=== PATIENT | male | born 1950 | race Caucasian/White ===

== ENCOUNTER 2019-03-30 06:44 | Outpatient (RCR) | payer MEDICARE, SELFPAY | END 2019-04-03 00:01 | LOC: ONCRAD 06:44 | PROVIDERS: Family Provider Internal Medicine; Visit Provider Internal Medicine Medical Oncology | DX: C34.31 Malignant neoplasm of lower lobe, right bronchus or lung (principal); C78.1 Secondary malignant neoplasm of mediastinum; R93.7 Abnormal findings on diagnostic imaging of other parts of musculoskeletal system; M48.52XA Collapsed vertebra, not elsewhere classified, cervical region, initial encounter for fracture; Z79.899 Other long term (current) drug therapy | CPT/HCPCS: 72040; 78806; A9569 ==

== ENCOUNTER 2019-04-22 05:47 | Outpatient (RCR) | payer MEDICARE, SELFPAY | END 2019-05-04 00:01 | LOC: ONCRAD 05:47 | PROVIDERS: Family Provider Internal Medicine; Visit Provider Radiology Radiation Oncology | DX: Z51.0 Encounter for antineoplastic radiation therapy (principal); C79.51 Secondary malignant neoplasm of bone; C34.31 Malignant neoplasm of lower lobe, right bronchus or lung; C78.1 Secondary malignant neoplasm of mediastinum; G89.3 Neoplasm related pain (acute) (chronic); R20.0 Anesthesia of skin; Z79.82 Long term (current) use of aspirin | CPT/HCPCS: 77014 ×9; 77280; 77290; 77295; 77300; 77334 ×2; 77336 ×2; 77386; 77412 ×9; 99215 ==

== ENCOUNTER 2019-05-07 05:49 | Outpatient (RCR) | payer MEDICARE, SELFPAY ==
--- NOTE | 2019-05-08 12:28 | ONC FU_ITS ---
Dr. Flower Patient Follow-Up Note Patient: Reshma Perry Unit #: [id number]: 1950 Dicatated By: Luis A Flower M.D.Date of Visit:May 07, 2019 Onc Med Follow-up/Prog Note Chief Complaint: Lung cancer. 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 By clinical evaluation his disease was stage IIIB (T2b, N3, M0), but with subsequent progression to stage IVB (M1c). On 08/31/2018 he had presented to the emergency room with pain in the left side of the chest and heartburn. His evaluation included CT pulmonary angiogram. That study showed no pulmonary emboli, but there was evidence of a spiculated mass in the posterior right lower lobe measuring 5.8 x 5.7 x 4.5 cm. There was possible invasion into the intercostal muscles. Also noted was mediastinal and hilar lymphadenopathy, including a confluent cluster of subcarinal lymph nodes measuring 4.3 x 2.9 cm as well as bilateral paratracheal and hilar lymphadenopathy. Also noted was a 1.4 spiculated nodule at the right lung apex, consistent with early neoplasm versus scar. Transbronchial biopsy of the right lower lobe on 09/17/2018 showed non-small cell carcinoma consistent with adenosquamous carcinoma. The tumor cells were TTF-1 positive. Staging PET/CT on 09/25/2018 showed FDG avid right lower lobe mass with extensive metastatic involvement in the mediastinum but no evidence for distant metastases. His medical illnesses include hypertension, hyperlipidemia, coronary artery disease, and COPD. He has had previous myocardial infarction and coronary angioplasty/stent placement. He has a history of superficial bladder cancer, for which he is now on yearly surveillance cystoscopy, and he also has a history of urethral stricture. He has smoked for more than 50 years, previously up to 3 packs of cigarettes daily, though he had subsequently cut down. INTERIM HISTORY: He began radiation concurrently with weekly carboplatin/Taxol chemotherapy on 11/03/2018. As of 12/09/2018 he had completed 6 weekly chemotherapy infusions. At week 4 his treatment was changed to carboplatin/Abraxane due to steroid related hyperglycemia. He completed radiation on 12/22/2018 to a total dose of [address] on 12/23/2018 showed a slight decrease in the size of the superior segment right lower lobe neoplasm compared to the August 2018 study. Cystic and/or necrotic mediastinal and hilar lymph nodes had slightly decreased in size and number. There was no evidence of disease progression. With those findings she was given the option to begin maintenance immunotherapy with durvalumab. He began cycle 1 on 01/20/2019. Within 2 days he had developed severe weakness and fever. On evaluation in the emergency room, he had evidence of urinary tract infection, which ultimately proved to be due to Enterobacter cloacae. He was ill enough to require hospitalization. He was discharged home 2 days later on antibiotic coverage with Levaquin. His laboratory studies did show a significant decline in his hemoglobin, to 8.3 g. During subsequent follow-up, he remained very weak, and he continued to require frequent IV hydration. His hemoglobin, though, returned to baseline at 11 g. He was seen for a follow-up visit on 02/03/2019. At that point he appeared to be showing some recovery, and I opted to just have him continue with observation/symptomatic management. At his follow-up visit on 02/22/2019 he complained of severe pain in the right shoulder. X-ray was unrevealing. His pain continued to worsen and also involved his neck. A repeat chest CT on 03/09/2019 showed interval decrease in the right lower lobe pleural-based neoplasm, at that point measuring 2.1 x 4.6 x 3.5 cm. A nodular opacity at the right lung base measuring 1.6 x 1.2 cm appeared stable. There was unchanged necrotic anterior mediastinal, AP window, and subcarinal lymphadenopathy. MRI of the cervical spine showed abnormal bone marrow signal involving the C6 vertebral body extending into the posterior elements with erosion of the spinous process and posterior elements. There was extensive posterior element and perispinal soft tissue edema. The reported differential included metastatic disease versus infection. A nuclear medicine WBC scan on 03/30/2019 showed evidence of a lytic bony destructive process throughout the C6 spinal level including pathologic compression of the C6 vertebral body, consistent with metastatic disease. He was then referred to Dr. Martinez for palliative radiation to the cervical spine. He completed treatment on 04/22/2019 to a total dose of 3000 cGy. He is seen for a follow-up visit. He has been feeling better following the radiation. He still has limited activity, but it has improved somewhat. His ECOG score is 2. Appetite also is better. He has not had fever. He has just occasional night sweats. He has had pretty much complete resolution of his neck and shoulder pain following the radiation, though he still has a little numbness in his right hand. He does have some shortness of breath, but he says his breathing is pretty good. He still has cough, which is chronic. He does not complain of chest pain. He has occasional nausea. He has had some constipation, but lately his bowel function also has been a little better. He has no complaints. He has no other joint or bone pain, and he has no other focal neurologic symptoms. Medications: Aspirin 1 Tablet (of 81 mg) Oral daily, Atorvastatin Calcium 1 Tablet (of 80 mg) Oral daily, Citalopram Hydrobromide 1 Tablet (of 20 mg) Oral daily, Daliresp 1 Tablet (of 500 mcg) Oral daily PRN, Dexamethasone (4 mg) Tablet Oral Take as Directed, Docusate Sodium 1 Capsule (of 100 mg) Oral daily, Dutasteride 1 Capsule (of 0.5 mg) Oral daily, Levemir Flexpen 20 Units (of 100 Units/mL) Subcutaneous at bedtime, Methenamine Hippurate 1 Tablet (of 1 G) Oral b.i.d., Montelukast Sodium 1 Tablet (of 10 mg) Oral daily PRN, Mouthwash Compounding Base 1 tsp Liquid Oral four times a day PRN, oxyCODONE-Acetaminophen 1 Tablet (of 5-325 mg) Oral q 6 hours PRN, Pantoprazole Sodium 1 Tablet (of 40 mg) Tablet, enteric coated Oral daily, predniSONE 1 Tablet (of 10 mg) Oral daily, Prochlorperazine Maleate 1 Tablet (of 10 mg) Oral b.i.d. PRN, Tamsulosin HCl 1 Capsule (of 0.4 mg) Oral b.i.d., Vitamin C 1 Tablet (of 1000 mg) Oral b.i.d. Allergies: Sulfa Antibiotics Review of Systems: Constitutional - He still has limited activity, but improved since radiation. Appetite is also better. No fever. He has occasional sweating at night. ECOG score is 2, ENMT - He always has sinus drainage. No mouth sores. No sore throat or difficulty swallowing, Hematologic/Lymphatic - He has some bruising, Respiratory - He has some shortness of breath, but his breathing is pretty good. He has some cough, but that is chronic. No pleuritic pain or hemoptysis, Cardiovascular - No angina pain. No palpitations, Gastrointestinal - He occasionally has nausea. No vomiting. No heartburn or acid reflux. He has some constipation, but his bowels lately have been a little better. No blood in the stool or black stools, Genitourinary (M) - No dysuria or hematuria. No urinary frequency. No urgency or incontinence, Musculoskeletal - He currently has no significant joint or bone pain, Integumentary - No skin complications, Neurologic - He very seldom has headache. He occasionally has dizziness. He still has some numbness in his right hand. He has no other focal neurologic symptoms, Psychiatric - No anxiety or depression. No insomnia. Vital Signs: Performed on May 07, 2019 10:33 Height - 66.00 in Weight - 101.2 lbs (HIGH) BSA - 1.50 sq.m BMI - 16.33 (LOW) Temperature - 97.8 F (LOW) Pulse - 61 /min Respiration - 18 /min BP - 102/62 mm(hg) O2 Sat - 99 % Pain - 0 Fatigue - 5 Physical Examination: Constitutional - He looks better generally, Eyes - Sclerae nonicteric. Conjunctivae clear, ENMT - No lesions noted in the oral cavity, Hematologic/Lymphatic - No cervical, clavicular, or axillary adenopathy, Respiratory - Lungs sound clear with diminished air movement bilaterally, Cardiovascular - Heart rhythm is regular. There is no murmur, gallop, or rub noted, Abdomen - Soft. Liver and spleen are not enlarged. There is no abdominal mass or ascites noted and there is no inguinal adenopathy, Extremities - No edema. There are purpuric lesions on both arms, Neurologic - No focal neurologic deficits noted. Impression: 1. 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 By clinical evaluation his disease is stage IIIB (T2b, N3, M0). 2. He had poor performance status, ECOG 2, and he had significant weight loss at initial diagnosis. His other medical illnesses include: 3. COPD. 4. Hypertension. 5. Hyperlipidemia. 6. Coronary artery disease. 7. History of superficial bladder cancer. 8. He has a history of urethral stricture. 9. Anxiety/depression. He began radiation concurrently with weekly carboplatin/Taxol chemotherapy on 11/03/2017. As of 12/09/2018 he had completed 6 weekly chemotherapy infusions. Beginning with week 4 his treatment was changed to carboplatin/Abraxane due to steroid related hyperglycemia. He completed radiation on 12/22/2018 to a total dose of 6600 cGy. His restaging chest CT on 12/23/2018 showed slight decrease in the right lower lobe pulmonary neoplasm and in the mediastinal and hilar lymph nodes. There was no evidence of disease progression. Given those findings, he was given the option to begin maintenance immunotherapy with durvalumab. He began cycle 1 on 01/20/2019. Within 2 days had developed acute illness with severe weakness and fever. This was thought to be due to urinary tract infection, and his urine culture ultimately did grow Enterobacter cloacae. He was given antibiotic therapy with Levaquin. During that time, he also had become significantly anemic. During subsequent follow-up he remained weak, and he continued to require frequent IV hydration. His hemoglobin, though, returned to baseline at 11 g. During subsequent followup he appeared to be showing gradual recovery. However, at his follow-up visit on 02/22/2019 he had developed new pain in the right shoulder and arm and subsequently in his neck. Repeat chest CT showed residual pleural-based right lower lobe mass measuring 2.1 x 4.6 x 3.5 cm, but it had decreased from the prior study. His subsequent MRI and nuclear medicine WBC scan showed evidence of metastatic involvement of the C6 vertebral body with associated pathologic compression fracture. He was referred to Dr. Martinez for palliative radiation to the cervical spine. He completed treatment on 04/22/2019 to a total dose of 3000 cGy. He has had a very good clinical response. Plan: He will be scheduled for restaging PET/CT, and he will then return to discuss options for further treatment of his lung cancer, which has now progressed to stage IVB. Signed By: Luis A Flower M.D. <<Signature on File>>
== END 2019-06-04 23:59 | disposition home or self-care (01) ==
LOC: ONCMED 05:49
PROVIDERS: Family Provider Internal Medicine; PCP Internal Medicine Medical Oncology; Visit Provider Internal Medicine Medical Oncology
DX: C34.31 Malignant neoplasm of lower lobe, right bronchus or lung (principal); C78.1 Secondary malignant neoplasm of mediastinum; C79.51 Secondary malignant neoplasm of bone; I10 Essential (primary) hypertension; I25.10 Atherosclerotic heart disease of native coronary artery without angina pectoris; Z95.5 Presence of coronary angioplasty implant and graft; J44.9 Chronic obstructive pulmonary disease, unspecified; I25.2 Old myocardial infarction; F17.210 Nicotine dependence, cigarettes, uncomplicated; G89.3 Neoplasm related pain (acute) (chronic); F41.8 Other specified anxiety disorders; R73.9 Hyperglycemia, unspecified; T38.0X5A Adverse effect of glucocorticoids and synthetic analogues, initial encounter; Z79.82 Long term (current) use of aspirin; Z79.84 Long term (current) use of oral hypoglycemic drugs; Z79.891 Long term (current) use of opiate analgesic; Z85.51 Personal history of malignant neoplasm of bladder; Z92.3 Personal history of irradiation; Z92.21 Personal history of antineoplastic chemotherapy; Z87.440 Personal history of urinary (tract) infections
CPT/HCPCS: 99214

== ENCOUNTER 2019-06-29 03:56 | Inpatient (IN) | payer OTHER, MEDICARE, SELFPAY ==
[2019-06-29] VITALS (47 sets, daily range): BP systolic 73–135; BP diastolic 43–75; PULSE 59–101; RESP 12–21; TEMP 36.3–36.8; O2SAT 89–99; BMI 18.3
--- NOTE | 2019-06-29 03:57 | ED_ITS ---
Entered by Tabitha Catherine, acting as scribe for HPI - Weakness General: Chief complaint: Weakness Stated complaint: WEAKNESS FALL Time Seen by Provider: 06/29/19 03:57 Source: EMS Mode of arrival: EMS Limitations: no limitations History of Present Illness: HPI Narrative: 68 yo m came to the er by [facility] for weakness. 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 Ems states that they got called out to a 68 yo m unresponsive, when they got there pt was responsive and had just fallen out of bed due to being really weak. Pts family told ems that he was unresponsive for a little time. Pt is a cancer pt of . Pt has lung cancer that has moved to his neck. 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) Duration: intermittent Location: generalized Migration: none Severity: moderate Relieving factors: none Exacerbating factors: none Associated symptoms: Reports no associated symptoms; Denies chest pain, chills, dark stools, diaphoresis, dysuria, easy bruising, fever(s), nausea, syncope or vomiting Review of Systems General: Reports: other (negative unless marked) Const: Denies: fever, chills, body aches, fatigue, malaise or diaphoresis Eyes: Denies: change in vision or blurry vision ENMT: Denies: throat pain, painful swallowing, hoarseness, ear pain, ear discharge, Change in hearing or nasal discharge Card: Denies: chest pain, palpitations, irregular heart rhythm, syncope, pre- syncope, shortness of breath on exertion or shortness of breath when lying down Resp: Reports: shortness of breath, productive cough and wheezing; Denies: non-productive cough, coughing up blood or chest congestion GI: Denies: abdominal pain, nausea, vomiting, vomiting blood, coffee grounds in vomit, diarrhea, constipation, cramping, blood in stool or black tarry stool : Denies: flank pain, difficulty urinating, painful urination, urinary frequency, urinary urgency, decreased urine ouput, urinary incontinence or blood in urine Musc: Denies: neck pain, back pain, extremity pain, extremity swelling, joint pain, joint swelling, joint warmth or joint stiffness Skin/Breast: Denies: rash, skin tenderness or yellow skin Neuro: Reports: weakness in extremities Endo: Denies: excessive thirst, tired all the time, cold intolerance, excessive sweating, flushing or hot flashes Parth/Lymph: Denies: easy bruising, easy bleeding, petechiae or enlarged lymph nodes All/Imm: Denies: hives, throat swelling, tongue swelling, facial swelling or acute wheezing PFSH ED PFSH: Social History Smoking and tobacco status: current every day smoker Physical Exam Const: COMMON NORMALS: no apparent distress, oriented x3, no limitations, healthy appearing and well nourished EXAM LIMITATIONS: no altered mental status GENERAL APPEARANCE: cooperative, well kempt and well developed ORIENTATION/CONSCIOUSNESS: Yes awake HENMT: COMMON NORMALS: normocephalic, head/scalp atraumatic, hearing grossly normal bilaterally, external ears normal, EAC's normal, external nose normal and moist oral mucous membranes HEAD & SCALP: normal to inspection, normocephalic and atraumatic FACE & SINUS: normal facial exam and face symmetric NOSE: external nose normal and nares normal EXTERNAL EAR: Yes external ears normal EXTERNAL AUDITORY CANAL: EAC's normal MOUTH: oral and palatal mucosa normal and tongue normal Eye: COMMON NORMALS: PERRL, EOMs intact bilaterally, conjunctivae normal and no scleral icterus GENERAL EYE: normal appearance of both eyes and normal light reflex CONJUNCTIVA: Yes conjunctivae normal SCLERA: sclerae normal CORNEA: Yes corneas normal PUPIL: Yes PERRL DIRECT OPHTHALMOSCOPY: Yes normal light reflex Neck/C-Spine: COMMON NORMALS: full ROM, no lymphadenopathy, supple, no meningeal signs and no JVD GENERAL: Yes normal visual inspection and Yes trachea midline CERVICAL SPINE: Yes cervical ROM normal Chest: COMMONS NORMALS: inspection of chest normal and palpation of chest normal Resp: EFFORT & INSPECTION: Yes able to speak in complete sentences AUSCULTATION: rhonchi and wheezes Cardio: COMMON NORMALS: no JVD, regular rate, regular rhythm, S1 normal heart sound, S2 normal heart sound, no gallops, no clicks, no murmurs and no rub JUGULAR VENOUS DISTENTION: no JVD RATE: regular rate RHYTHM: regular rhythm HEART SOUNDS: S1 normal and S2 normal GI: COMMON NORMALS: soft to palpation, non-tender, no hepatosplenomegaly and no masses INSPECTION: Yes normal to inspection PALPATION: Yes soft and Yes no hepatosplenomegaly : COMMON NORMALS: Yes no CVA tenderness BLADDER/KIDNEY EXAM: Yes no CVA tenderness Back/Pelvis: COMMON NORMALS: no CVA tenderness, thoracic and lumbar spine normal to inspection, no thoracic nor lumbar tenderness and thoraco-lumbar ROM normal Extremity: COMMON NORMALS: normal to inspection, full ROM, normal capillary refill, no joint enlargement, no clubbing, cyanosis or edema and no calf tenderness Neuro: COMMON NORMALS: oriented x3, CN's II-XII intact bilaterally, moves all extremities, no focal motor deficits and no sensory deficits noted MENINGEAL SIGNS: Yes no meningeal signs Psych: COMMON NORMALS: mental status grossly normal, thought process normal, cooperative, affect normal, speech normal and activity/motor behavior normal APPEARANCE: Yes well kempt SPEECH: Yes normal speech THOUGHT PROCESS: normal thought process Skin: COMMON NORMALS: no rashes or lesions noted, skin turgor normal, no jaundice, no petechiae and no mottling GENERAL SKIN EXAM: no rashes or lesions noted and turgor normal Course Vital Signs: Vital signs: Vital Signs Temperature 98.2 F 06/29/19 04:02 Pulse Rate 81 06/29/19 06:15 Respiratory Rate 15 06/29/19 06:15 Blood Pressure 96/52 06/29/19 06:15 Pulse Oximetry 96 06/29/19 06:15 MDM - Weakness Lab Data: Labs: Lab Results 06/29/19 06/29/19 06/29/19 Range/Units 04:06 04:31 04:31 WBC 8.9 (4.0-10.0) 10^3/ uL RBC 5.10 (4.1-5.3) 10^6/u L Hgb 14.4 (11.7-16.6) g/dL Hct 45.3 (42.0-52.0) % MCV 88.8 (80-94) fL MCH 28.2 (28.0-34.0) pg MCHC 31.8 (30.0-36.0) g/dL RDW 14.7 (12.1-15.1) % Plt Count 193 (130-400) 10^3/c mm MPV 9.1 (7.4-10.4) fL Neut % (Auto) 86.5 % Lymph % (Auto) 3.9 % Bethel % (Auto) 9.0 % Eos % (Auto) 0.0 % Baso % (Auto) 0.2 % Neut # (Auto) 7.7 (1.8-7.7) 10^3/u L Lymph # (Auto) 0.4 L (0.8-4.8) 10^3/u L Bethel # (Auto) 0.8 (0.2-0.9) 10^3/u L Eos # (Auto) 0.0 (0.0-0.8) 10^3/u L Baso # (Auto) 0.0 (0.0-0.1) 10^3/u L Nucleated RBC % (a uto) 0 % Nucleated RBCs # 0.0 /100WBC PT 13.30 (10.5-13.3) SECO NDS INR 1.01 (0.8-1.2) Specimen Type Sample Site ABG pH (7.35-7.45) ABG pCO2 (35-45) mmHg ABG pO2 (80.0-100.0) mmH g ABG HCO3 (22-26) mmol/L ABG Base Excess (-2.0-2.0) mmol/ L Cristofer Test Hematocrit (42-52) % O2 Delivery Device O2 Liters/Min % Product Communications Manager ID Sodium (136-145) mmol/L Potassium (3.5-5.1) mmol/L Chloride (98-107) mmol/L Carbon Dioxide (22-29) mmol/L Anion Gap (5-19) BUN (8-23) mg/dL Creatinine (0.7-1.2) mg/dL GFR Calculation (90-130) mL/min Glucose (65-115) mg/dL Lactic Acid (0.5-2.2) mmol/L Calcium (8.5-10.5) mg/dL Magnesium (1.7-2.3) mg/dL Total Bilirubin (0.15-1.2) mg/dL AST (0-40) U/L ALT (0-41) U/L Alkaline Phosphata se (40-130) IU/L Ammonia (16-60) umol/L Troponin T Baselin e (0-15) ng/mL Total Protein (6.6-8.7) g/dL Albumin (3.5-5.2) g/dL Globulin (1.3-4.6) g/dL Ethyl Alcohol (0-10) mg/dL Influenza Type A A g Negative (Negative) POC Influenza B Ag Negative (Negative) 06/29/19 06/29/19 06/29/19 Range/Units 04:31 04:31 04:31 WBC (4.0-10.0) 10^3/ uL RBC (4.1-5.3) 10^6/u L Hgb (11.7-16.6) g/dL Hct (42.0-52.0) % MCV (80-94) fL MCH (28.0-34.0) pg MCHC (30.0-36.0) g/dL RDW (12.1-15.1) % Plt Count (130-400) 10^3/c mm MPV (7.4-10.4) fL Neut % (Auto) % Lymph % (Auto) % Bethel % (Auto) % Eos % (Auto) % Baso % (Auto) % Neut # (Auto) (1.8-7.7) 10^3/u L Lymph # (Auto) (0.8-4.8) 10^3/u L Bethel # (Auto) (0.2-0.9) 10^3/u L Eos # (Auto) (0.0-0.8) 10^3/u L Baso # (Auto) (0.0-0.1) 10^3/u L Nucleated RBC % (a uto) % Nucleated RBCs # /100WBC PT (10.5-13.3) SECO NDS INR (0.8-1.2) Specimen Type Sample Site ABG pH (7.35-7.45) ABG pCO2 (35-45) mmHg ABG pO2 (80.0-100.0) mmH g ABG HCO3 (22-26) mmol/L ABG Base Excess (-2.0-2.0) mmol/ L Cristofer Test Hematocrit (42-52) % O2 Delivery Device O2 Liters/Min % Product Communications Manager ID Sodium 137 (136-145) mmol/L Potassium 3.2 L (3.5-5.1) mmol/L Chloride 96 L (98-107) mmol/L Carbon Dioxide 24 (22-29) mmol/L Anion Gap 20.2 H (5-19) BUN 15 (8-23) mg/dL Creatinine 0.8 (0.7-1.2) mg/dL GFR Calculation 95.8 (90-130) mL/min Glucose 101 (65-115) mg/dL Lactic Acid 2.7 H (0.5-2.2) mmol/L Calcium 9.8 (8.5-10.5) mg/dL Magnesium 1.9 (1.7-2.3) mg/dL Total Bilirubin 0.7 (0.15-1.2) mg/dL AST 14 (0-40) U/L ALT 10 (0-41) U/L Alkaline Phosphata se 81 (40-130) IU/L Ammonia (16-60) umol/L Troponin T Baselin e 31 H (0-15) ng/mL Total Protein 6.9 (6.6-8.7) g/dL Albumin 3.4 L (3.5-5.2) g/dL Globulin 3.5 (1.3-4.6) g/dL Ethyl Alcohol < 10 (0-10) mg/dL Influenza Type A A g (Negative) POC Influenza B Ag (Negative) 06/29/19 06/29/19 Range/Units 04:31 05:05 WBC (4.0-10.0) 10^3/ uL RBC (4.1-5.3) 10^6/u L Hgb (11.7-16.6) g/dL Hct (42.0-52.0) % MCV (80-94) fL MCH (28.0-34.0) pg MCHC (30.0-36.0) g/dL RDW (12.1-15.1) % Plt Count (130-400) 10^3/c mm MPV (7.4-10.4) fL Neut % (Auto) % Lymph % (Auto) % Bethel % (Auto) % Eos % (Auto) % Baso % (Auto) % Neut # (Auto) (1.8-7.7) 10^3/u L Lymph # (Auto) (0.8-4.8) 10^3/u L Bethel # (Auto) (0.2-0.9) 10^3/u L Eos # (Auto) (0.0-0.8) 10^3/u L Baso # (Auto) (0.0-0.1) 10^3/u L Nucleated RBC % (a uto) % Nucleated RBCs # /100WBC PT (10.5-13.3) SECO NDS INR (0.8-1.2) Specimen Type Arterial Sample Site Radial, left ABG pH 7.43 (7.35-7.45) ABG pCO2 40.6 (35-45) mmHg ABG pO2 74.6 L (80.0-100.0) mmH g ABG HCO3 27.1 H (22-26) mmol/L ABG Base Excess 2.6 H (-2.0-2.0) mmol/ L Cristofer Test Pos Hematocrit 43.1 (42-52) % O2 Delivery Device Nc O2 Liters/Min 6.0 % Product Communications Manager ID ellpe Sodium (136-145) mmol/L Potassium (3.5-5.1) mmol/L Chloride (98-107) mmol/L Carbon Dioxide (22-29) mmol/L Anion Gap (5-19) BUN (8-23) mg/dL Creatinine (0.7-1.2) mg/dL GFR Calculation (90-130) mL/min Glucose (65-115) mg/dL Lactic Acid (0.5-2.2) mmol/L Calcium (8.5-10.5) mg/dL Magnesium (1.7-2.3) mg/dL Total Bilirubin (0.15-1.2) mg/dL AST (0-40) U/L ALT (0-41) U/L Alkaline Phosphata se (40-130) IU/L Ammonia 28 (16-60) umol/L Troponin T Baselin e (0-15) ng/mL Total Protein (6.6-8.7) g/dL Albumin (3.5-5.2) g/dL Globulin (1.3-4.6) g/dL Ethyl Alcohol (0-10) mg/dL Influenza Type A A g (Negative) POC Influenza B Ag (Negative) Imaging Data^: CT Head: Radiologist's impression: [address] [address] [address] Scan Report Signed Patient: Reshma Perry Unit #: [id number] : 1950 Age/Sex: 68 / M ADM Date: 06/29/19 Loc: ER Room/Bed: Attending Dr: Ordering Provider/Ordering MD: Korin Traylor DO Date of Service: 06/29/19 Procedure(s): CT head wo con* [id number] Accession Number(s): [id number] Report Number: [id number] PROCEDURE INFORMATION: Exam: CT Head Without Contrast Exam date and time: 06/29/2019 4:07 AM Age: 68 years old Clinical indication: Walking, difficulty; Additional info: Cote/ams TECHNIQUE: Imaging protocol: Computed tomography of the head without contrast. Total DLP: 715.37 mGy-cm Radiation optimization: All CT scans at this facility use at least one of these dose optimization techniques: automated exposure control; mA and/or kV adjustment per patient size (includes targeted exams where dose is matched to clinical indication); or iterative reconstruction. COMPARISON: No relevant prior studies available. FINDINGS: The ventricles and sulci are mildly and diffusely prominent, compatible with global brain volume loss. There is mild hypodensity of the periventricular white matter. This is nonspecific, but a likely cause is small vessel ischemic disease. No abnormal intra-axial or extra-axial fluid collections are identified. There is no midline shift. No evidence of intracranial hemorrhage. The visualized bones are unremarkable. CT/CT head wo con* [id number] IMPRESSION: 1. No acute intracranial abnormality identified. Radiation Dose CTDIVOL = (mGy): DLP = 715.37 (mGy-cm) Dictated By: Aj Chen MD Signed By: Aj Chen MD Signed Date/Time: 06/29/1945 DD/ CXR: My impression: Right perihilar infiltrate. EKG Data^: EKG 1: Attestation: I personally reviewed and interpreted this EKG as follows: EKG interpretation date: 06/29/19 EKG interpretation time: 04:18 Interpretation: Normal sinus rhythm at 80 beats a minute, T wave inversions in aVL, normal axis, normal intervals, no blocks. Similar to previous. EKG 2: Attestation: I personally reviewed and interpreted this EKG as follows: EKG interpretation date: 06/29/19 EKG interpretation time: 06:02 Interpretation: Normal sinus rhythm at 80 beats a minute, normal intervals, no blocks, T wave inversions in aVL. Similar previous. Discharge Plan Discharge Prescriptions: No Action Unable to Assess RF: 0 Coding Level of Care Code ED Engine Turner for Chg Fwd Exam Comprehensive The documentation recorded by the Florin dominguez Stephanie Lyn, accurately reflects the service I personally performed and the decisions made by Layton camacho Eli N Jun 29, 2019 03:56
--- NOTE | 2019-06-29 04:00 | XR_ITS ---
WS: [id number] Portable AP upright chest, 06/29/2019 Clinical Data: cough Comparison: Portable chest, 01/22/2019. Findings: The nodules present on the prior exam are not apparent on today's exam. There is right suha r fullness. There is basilar interstitial change adjacent to the right and left cardiac borders. The heart is normal. A left subclavian catheter is in good position unchanged. The diaphragms are flattened. The pulmonary vascularity is not increased. No pneumothorax is seen. XR/XR chest 1V portable [id number] Impression: 1. Nodules in the upper lobes and also in the right hilum not apparent on this examination. 2. Bilateral interstitial change adjacent to the right and left cardiac borders which could represent minimal pneumonia. 3. Hyperinflation.
--- NOTE | 2019-06-29 04:00 | CTR_ITS ---
PROCEDURE INFORMATION: Exam: CT Head Without Contrast Exam date and time: 06/29/2019 4:07 AM Age: 68 years old Clinical indication: Walking, difficulty; Additional info: Cote/ams TECHNIQUE: Imaging protocol: Computed tomography of the head without contrast. Total DLP: 715.37 mGy-cm Radiation optimization: All CT scans at this facility use at least one of these dose optimization techniques: automated exposure control; mA and/or kV adjustment per patient size (includes targeted exams where dose is matched to clinical indication); or iterative reconstruction. COMPARISON: No relevant prior studies available. FINDINGS: The ventricles and sulci are mildly and diffusely prominent, compatible with global brain volume loss. There is mild hypodensity of the periventricular white matter. This is nonspecific, but a likely cause is small vessel ischemic disease. No abnormal intra-axial or extra-axial fluid collections are identified. There is no midline shift. No evidence of intracranial hemorrhage. The visualized bones are unremarkable. CT/CT head wo con* [id number] IMPRESSION: 1. No acute intracranial abnormality identified. Radiation Dose CTDIVOL = (mGy): DLP = 715.37 (mGy-cm)
--- NOTE | 2019-06-29 04:01 | ECG_ITS ---
Measurements Intervals [place] Rate: 85 P: 92 ID: [id number] QRS: 96 QRSD: 155 T: 9 QT: 426 QTc: 508 SINUS RHYTHM BORDERLINE RIGHT AXIS DEVIATION [QRS AXIS > 90] INTRAVENTRICULAR CONDUCTION DELAY [130+ ms QRS DURATION] Compared to ECG 01/22/2019 22:17:32 Intraventricular conduction delay now present Electronically Signed On 06-29-2019 19:41:39 MANUFACTURING COST ESTIMATOR by Oniel Miller M.D. [email or web address]
[2019-06-29] MEDS: sodium chloride 0.9% 1,000 ML 100 ML IV (04:10)
[2019-06-29 04:37] LABS: Influenza A by IFA Negative (Negative); Influenza B by IFA Negative (Negative)
[2019-06-29 04:46] LABS: Basophils % 0.2 %; Hematocrit 45.3 % (42.0-52.0); Hemoglobin 14.4 g/dL (11.7-16.6); Lymphocytes # 0.4 10^3/uL (0.8-4.8); Lymphocytes % 3.9 %; Mean Corpuscular HGB Conc 31.8 g/dL (30.0-36.0); Mean Corpuscular Hemoglobin 28.2 pg (28.0-34.0); Mean Corpuscular Volume 88.8 fL (80-94); Mean Platelet Volume 9.1 fL (7.4-10.4); Monocytes # 0.8 10^3/uL (0.2-0.9); Neutrophils # 7.7 10^3/uL (1.8-7.7); Neutrophils % 86.5 %; Nucleated Red Blood Cells % 0 %; Platelet Count 193 10^3/cmm (130-400); Red Cell Distribution Width 14.7 % (12.1-15.1); White Blood Count 8.9 10^3/uL (4.0-10.0)
[2019-06-29 04:48] LABS: Alanine Aminotransferase 10 U/L (0-41); Albumin Level 3.4 g/dL (3.5-5.2); Alkaline Phosphatase 81 IU/L (40-130); Anion Gap 20.2 (5-19); Aspartate Amino Transferase 14 U/L (0-40); Blood Urea Nitrogen 15 mg/dL (8-23); Calcium 9.8 mg/dL (8.5-10.5); Carbon Dioxide 24 mmol/L (22-29); Chloride 96 mmol/L (98-107); Globulin 3.5 g/dL (1.3-4.6); Glomerular Filtration Rate 95.8 mL/min (90-130); Glucose 101 mg/dL (65-115); Magnesium 1.9 mg/dL (1.7-2.3); Potassium 3.2 mmol/L (3.5-5.1); Sodium 137 mmol/L (136-145); Total Bilirubin 0.7 mg/dL (0.15-1.2); Total Protein 6.9 g/dL (6.6-8.7)
[2019-06-29 04:49] LABS: Alcohol Level < 10 mg/dL (0-10)
[2019-06-29 04:51] LABS: Lactic Sepsis W/Reflex 2.7 mmol/L (0.5-2.2)
[2019-06-29 04:54] LABS: INR 1.01 (0.8-1.2)
[2019-06-29 05:05] LABS: Ammonia 28 umol/L (16-60)
[2019-06-29] MEDS: ipratropium-albuterol 3 mL Neb 9 ML INHALATION (05:05)
[2019-06-29 05:08] LABS: Troponin(5th) Baseline 31 ng/mL (0-15)
[2019-06-29 05:16] LABS: ABG PCO2 40.6 mmHg (35-45); ABG PH Result 7.43 (7.35-7.45); Arterial Blood Gas Hematocrit 43.1 % (42-52); Base Excess ABG 2.6 mmol/L (-2.0-2.0); Blood Gas Allen Test Pos; Blood Gas Sample Site Radial, left; Blood Gas Sample Type Arterial; HCO3 ABG 27.1 mmol/L (22-26); Oxygen Device NC; PO2 ABG 74.6 mmHg (80.0-100.0)
[2019-06-29 05:54] LABS: Slide Review Slide Review Perform
[2019-06-29] MEDS: piperacillin-tazobactam 3.375 GM in sodium chloride 0.9% (plus) 50 ML IV (06:01)
--- NOTE | 2019-06-29 06:01 | ECG_ITS ---
Measurements Intervals [place] Rate: 80 P: 87 MA: 138 QRS: 85 QRSD: 90 T: 81 QT: 365 QTc: 422 SINUS RHYTHM Compared to ECG 01/22/2019 22:17:32 No significant changes Electronically Signed On 06-29-2019 19:56:13 GEOTHERMAL OPERATING ENGINEER by Oniel Miller M.D. [id number] f
[2019-06-29 06:19] LABS: Reflex Lactate Order REFLEX LACTIC ORDERD
[2019-06-29] MEDS: sodium chloride 0.9% 1,496.85 ML 1496.9 ML IV (06:44)
[2019-06-29 06:57] LABS: Troponin 5 2HR 67.16 ng/mL (0-15)
[2019-06-29 07:04] LABS: Troponin 5 2HR Delta 36.16 ABS# (0-10)
[2019-06-29] MEDS: DOPamine drip 400 MG/250 ML PREMIX 26.2 MG (07:36)
[2019-06-29 08:06] LABS: Lactic Acid level (Lactate) 1.6 mmol/L (0.5-2.2)
[2019-06-29 08:58] LABS: Bilirubin Urine Neg (NEGATIVE); Blood Urine 2+ (Negative); Glucose Urine UA Norm (Normal); Ketones Urine 2+ (Negative); Leukocyte Esterase Urine Negative (Negative); Nitrate Urine Negative (Negative); Protein Urine Trace (Negative); Specific Gravity, Urine 1.015 (1.005-1.030); Urine Appearance Clear (CLEAR); Urine Color Yellow (Yellow); Urobilinogen Urine Norm (Negative)
[2019-06-29 09:07] LABS: Add Urine Culture? Yes; Bacteria Urine 4+; Mucus Urine TRACE; Squamous Epithelial Cell Urine RARE (0-5); WBC Urine 0-4 /hpf (0-5)
--- NOTE | 2019-06-29 10:01 | ECG_ITS ---
Measurements Intervals [place] Rate: 63 P: 82 IL: 155 QRS: 82 QRSD: 94 T: 80 QT: 413 QTc: 424 SINUS RHYTHM WITH SINUS ARRHYTHMIA Compared to ECG 01/22/2019 22:17:32 No significant changes Electronically Signed On 06-29-2019 19:57:14 NUCLEAR EQUIPMENT OPERATOR by Oniel Miller M.D. [email or web address]
--- NOTE | 2019-06-29 10:56 | P.HP_ITS ---
Providers/Chief Complaint Admitting Physician: Shayy Albert DO Primary Care Provider: Luis A Flower MD Chief Complaint: WEAKNESS FALL History of Present Illness Reshma Perry is a 68 year old male with a past medical history of non-small cell carcinoma involving the lower lobe of the right lung that presented to the emergency department today for generalized weakness and recurrent syncopal episodes. Patient's is at bedside and reported that patient had got up this morning sitting at the side of bed and suddenly fell to the side. She stated that he is uncertain if he hit his head, does not recall the events that precipitated this event. reported that he has been having similar episodes over the past month. She stated that he will have episodes where he becomes unresponsive and then will come back to. Patient does not have any loss of bowel or bladder control with these episodes. It was reported that he had 2 passing out episodes this morning. Patient denies any chest pain, lightheadedness or dizziness prior to these events. He does not recall the events. Patient reports that he has had fever for the past 4 to 5 days, has not been checking his temperature at home but feels that he has had a fever due to his symptoms. reports that the only medications he has been taking is his pain medication along with Tylenol and Motrin due to the concern for pain and fever. Patient reports that his cough is chronic in nature, denies any increase in sputum production. He denies any hemoptysis. Again patient reported that he is not taking any of his other home medications other than his pain medication. He reports he takes his insulin at home on an as-needed basis but not regularly. He stated that he follows with Dr. Owens but has not seen him since May. Patient reports that he had a PET scan that was scheduled in the outpatient setting but he has had to reschedule it 2 times now. He has not had any follow- up with oncology office since the beginning of May. Patient reports that his grandson is also been sick at home with cough and fever. Patient was seen and evaluated in the emergency department noted to have concern for bradycardia and initially required dopamine drip, this was then discontinued. Patient had episodes at approximately 740 this morning where he became bradycardic into the 40s with hypotension. Patient required dopamine for approximately 1 hour then it was discontinued Review of Systems Const: Reports: fever; Denies: chills Eyes: Denies: change in vision ENMT: Denies: nasal congestion Card: Denies: chest pain, palpitations or edema Resp: Reports: productive cough; Denies: shortness of breath or coughing up blood GI: Denies: abdominal pain, nausea, vomiting, diarrhea, constipation, blood in stool or black tarry stool : Denies: painful urination or blood in urine Musc: Denies: extremity pain or muscle cramps Skin/Breast: Denies: rash or new lesion Neuro: Denies: headache or dizziness Psych: Denies: anxiety or depression Endo: Denies: excessive urination or hot flashes Parth/Lymph: Denies: easy bruising or easy bleeding Medications/Allergies Home Medications Medication Instructions Recorded Confirmed Last Taken Type ascorbic acid (vitamin C) [Vitamin 500 mg PO BID 06/29/19 06/29/19 Unknown History C] aspirin 81 mg PO DAILY 06/29/19 06/29/19 Unknown History atorvastatin 80 mg PO DAILY 06/29/19 06/29/19 Unknown History citalopram 20 mg PO DAILY 06/29/19 06/29/19 Unknown History gabapentin 300 mg PO TID 06/29/19 06/29/19 Unknown History insulin detemir U-100 [Levemir 15 unit SUBCUT DAILY 06/29/19 06/29/19 06/28/19 History FlexTouch U-100 Insuln] methenamine hippurate 1 g PO BID 06/29/19 06/29/19 Unknown History omega 1-puo-qah-fish oil [Fish Oil] 1 cap PO TID 06/29/19 06/29/19 Unknown History oxycodone 15 mg PO Q4H PRN 06/29/19 06/29/19 06/28/19 History pantoprazole 40 mg PO DAILY 06/29/19 06/29/19 Unknown History prednisone 10 mg PO BID 06/29/19 06/29/19 Unknown History roflumilast [Daliresp] 500 mcg PO DAILY 06/29/19 06/29/19 Unknown History Allergies Allergy/AdvReac Type Severity Reaction Status Date / Time No Known Allergies Allergy Verified 06/29/19 04:04 PFSH Acute PFSH: Medical History (Updated 06/29/19 @ 12:42 by Shayy Albert DO) COPD (chronic obstructive pulmonary disease) Coronary artery disease Diabetes mellitus type 2, insulin dependent History of bladder cancer Yearly surveillance cystoscopy Hyperlipidemia Hypertension 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 Followed by Dr. Flower Port-A-Cath in place Surgical History (Updated 06/29/19 @ 12:36 by Shayy Albert DO) History of cystoscopy History of hernia surgery Hx of cardiac cath Family History (Updated 06/29/19 @ 12:37 by Shayy Albert DO) Mother Cancer Lung, at the age of 47 Father CAD (coronary artery disease) Lung disease Social History (Updated 06/29/19 @ 12:37 by Shayy Albert DO) Smoking and tobacco status: current every day smoker Alcohol intake: never Substance/Drug Use: never Marital status: Vitals/I&O/Wt Last Vital Signs Temp 98.2 F 06/29/19 04:02 Pulse 73 06/29/19 10:39 Resp 21 H 06/29/19 10:39 BP 90/49 06/29/19 10:39 Pulse Ox 95 06/29/19 08:09 06/28/19 06/29/19 06/29/19 22:59 06:59 14:59 Intake Total 1000.000 / 1000.000 Output Total 300 / 300 Balance 1000.000 / 1000.000 -300 / -300 Weight last 48 hrs Weight 49.895 kg Physical Exam Const: COMMON NORMALS: oriented x3 and alert GENERAL APPEARANCE: cooperative and frail appearing NUTRITIONAL APPEARANCE: cachectic and thin ORIENTATION/CONSCIOUSNESS: Yes awake, Yes oriented to person, Yes oriented to place and Yes oriented to time HENMT: COMMON NORMALS: normocephalic and head/scalp atraumatic HEAD & SCALP: atraumatic Eye: COMMON NORMALS: PERRL PUPIL: Yes PERRL Neck/C-Spine: COMMON NORMALS: supple GENERAL: Yes normal visual inspection Resp: OTHER: Oxygen by nasal cannula in place, mild accessory muscle use, coarse breath sounds bilaterally with prolonged expiratory phase Cardio: COMMON NORMALS: regular rate, regular rhythm and no murmurs RATE: regular rate RHYTHM: regular rhythm GI: COMMON NORMALS: soft to palpation and non-tender INSPECTION: No abdominal distension AUSCULTATION: Yes normoactive bowel sounds PALPATION: Yes soft Extremity: COMMON NORMALS: no clubbing, cyanosis or edema and no calf tenderness Neuro: COMMON NORMALS: oriented x3, CN's II-XII intact bilaterally, moves all extremities and no focal motor deficits SENSORIUM/ORIENTATION: Yes alert, Yes oriented to person, Yes oriented to place and Yes oriented to time SPEECH: speech normal Psych: COMMON NORMALS: mental status grossly normal and cooperative Skin: COMMON NORMALS: no rashes or lesions noted Data : 06/29/19 04:31 06/29/19 04:31 Micro: Microbiology 06/29/19 04:31 Blood Culture - Preliminary Blood SPECIMEN COLLECTED 06/29/19 04:31 Blood Culture - Preliminary Blood SPECIMEN COLLECTED CT Head: My impression: Personally reviewed, report is read by radiologist: Radiologist's impression: FINDINGS: The ventricles and sulci are mildly and diffusely prominent, compatible with global brain volume loss. There is mild hypodensity of the periventricular white matter. This is nonspecific, but a likely cause is small vessel ischemic disease. No abnormal intra-axial or extra-axial fluid collections are identified. There is no midline shift. No evidence of intracranial hemorrhage. The visualized bones are unremarkable. CT/CT head wo con* [id number] IMPRESSION: 1. No acute intracranial abnormality identified. CXR: My impression: Reviewed, report as read by radiologist Radiologist's impression: Impression: 1. Nodules in the upper lobes and also in the right hilum not apparent on this examination. 2. Bilateral interstitial change adjacent to the right and left cardiac borders which could represent minimal pneumonia. 3. Hyperinflation. A&P Assessment and plan (1) NSTEMI (non-ST elevated myocardial infarction): Denies any chest pain. Reported syncopal episodes x2 prior to admission Sinus bradycardia in the ED at approximately 740 requiring dopamine drip, this was then discontinued We will discuss further with cardiology Hold on any john blocking agents due to bradycardia Treatment dose Lovenox, aspirin, statin Status: Acute Code(s): I21.4 - Non-ST elevation (NSTEMI) myocardial infarction (2) Pneumonia: Patient reports continued cough with sputum production and fevers for the past 4 to 5 days at home, will continue on Rocephin and azithromycin. Complicated pneumonia with known lung cancer. We will continue to monitor respiratory status closely. Respiratory therapy to assess and treat, oxygen per protocol Status: Acute Code(s): J18.9 - Pneumonia, unspecified organism (3) COPD (chronic obstructive pulmonary disease): Known COPD with continued tobacco abuse. Acute COPD exacerbation will place on Solu-Medrol and antibiotics as above. Patient is not on any home oxygen at baseline, likely will require oxygen at time of discharge Status: Acute Code(s): J44.9 - Chronic obstructive pulmonary disease, unspecified (4) Coronary artery disease: Known coronary artery disease with a history of stent placement in 2004, followed by Dr. Banegas in the outpatient setting. 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 Will make oncologist aware of admission Recently completed radiation to the cervical spine in April Status: Acute Code(s): C34.90 - Malignant neoplasm of unspecified part of unspecified bronchus or lung (8) Diabetes mellitus type 2, insulin dependent: Has been only taking intermittent insulin at home, will place on sliding scale insulin while inpatient Status: Acute Code(s): E11.9 - Type 2 diabetes mellitus without complications; Z79.4 - long term (current) use of insulin Additional A&P Information Hypokalemia: Given 20 mEq of potassium in the ER, will continue to monitor closely. Magnesium ordered to check Syncopal episode x2: Telemetry, patient denies any symptoms prior to these events. Question if he is having symptomatic bradycardia or heart block at home. Therefore will consult cardiology for further evaluation and treatment. Despite patient having stage IV cancer he wishes to proceed with further work-up and treatment. Echocardiogram ordered for further evaluation. Bacteriuria: Patient with 4+ bacteria on UA, negative nitrites and leuk esterase, on Rocephin for pneumonia as noted above, will continue at this time and follow-up with cultures. Chronic Pain on daily opioids: Continue home pain medication, continue to monitor blood pressure, respiratory status and heart rate closely prior to administration. Neuropathy: Continue home gabapentin History of bladder cancer: Followed by Dr. Mcduffie with cystoscopies yearly DVT prophylaxis: On treatment dose Lovenox due to concern for non-ST elevation MN Diet: Cardiac CODE STATUS: DNR/DNI, this was discussed with patient and his was at bedside during this discussion. Attestations Medical Necessity Statement*: Patient requires hospitalization due to concern for non-ST elevation MN and syncope. Expected stay greater than 2 midnights Coding Level of Care Code Acute Network Communications Engineer for [facility] Fwd Exam Comprehensive Diagnoses NSTEMI (non-ST elevated myocardial infarction) I21.4 Pneumonia J18.9 COPD (chronic obstructive pulmonary disease) J44.9 Coronary artery disease I25.10 Hyperlipidemia E78.5 Hypertension I10 Non-small cell carcinoma of lung C34.90 Diabetes mellitus type 2, insulin dependent E11.9; Z79.4
[2019-06-29 11:03] LABS: Troponin 5 6HR 83.63 ng/mL (0-15)
[2019-06-29 11:08] LABS: Troponin 5 6HR Delta 52.63 ng/L (0-12)
--- NOTE | 2019-06-29 12:37 | USCV_ITS ---
Orlando Reshma Age: 68 Gender: M : 1950 Exam Date: 06/29/2019 15:47 Ordering Phys: Shayy Albert DO Technologist: Melodie Yates Exam Location: [facility] [place] Indication: bradycardia, syncope BP: 122 / 57 HR: 59 Rhythm: Sinus Technical Quality: Adequate MEASUREMENTS (Male / Female) Normal Values 2D ECHO LV Diastolic Diameter PLAX 4.0 cm 4.2 - 5.9 / 3.9 - 5.3 cm LV Systolic Diameter PLAX 2.8 cm LV Chamber Size 3.7 cm IVS Diastolic Thickness 0.9 cm 0.6 - 1.0 / 0.6 - 0.9 cm IVS Systolic Thickness 1.2 cm LVPW Diastolic Thickness 1.1 cm 0.6 - 1.0 / 0.6 - 0.9 cm LVPW Systolic Thickness 1.7 cm RV Chamber Size 3.2 cm LVOT Diameter 2.0 cm LV Ejection Fraction 2D Teich 58.6 % LA Diameter 3.6 cm LA Width 2.3 cm LA Height 3.8 cm RA Width 2.5 cm RA Height 3.6 cm M-MODE LV Diastolic Diameter MM 5.6 cm 4.2 - 5.9 / 3.9 - 5.3 cm LV Systolic Diameter MM 3.5 cm LV Ejection Fraction MM Teich 67.6 % IVS Diastolic Thickness MM 0.6 cm 0.6 - 1.0 / 0.6 - 0.9 cm IVS Systolic Thickness MM 1.0 cm LVPW Diastolic Thickness MM 0.9 cm 0.6 - 1.0 / 0.6 - 0.9 cm LVPW Systolic Thickness MM 1.3 cm Aortic Annulus Diameter 3.4 cm LA Ao Ratio MM 1.0 MV E Point Septal Separation 1.0 cm DOPPLER AV Peak Velocity 86.0 cm/s LVOT Peak Velocity 82.0 cm/s AV Area Cont Eq vti 2.6 cm squared AV Area Cont Eq pk 3.1 cm squared MV Area PHT 3.3 cm squared Mitral E to A Ratio 1.3 MV E' Velocity 11.0 cm/s Mitral E to MV E' Ratio 7.3 Mitral E to LV E' Lateral Ratio 7.1 Mitral E to LV E' Septal Ratio 7.5 TR Peak Velocity 271.0 cm/s TR Peak Gradient 29.4 mmHg TV Peak E Velocity 56.0 cm/s Right Atrial Pressure 3.0 mmHg Pulmonary Artery Systolic Pressu 32.4 mmHg PV Peak Velocity 66.0 cm/s RV Acceleration Time 0.1 s RV Ejection Time 0.4 s RV AcT/ET 0.3 FINDINGS Left Ventricle Normal left ventricular size, systolic function and wall thickness, with no regional wall motion abnormalities. Normal diastolic function. Left ventricular ejection fraction is estimated at 60%. Right Ventricle Normal right ventricular size and systolic function. Mild pulmonary hypertension, RVSP 32.4 mmHg. Right Atrium The right atrium is normal in size. Left Atrium The left atrium is normal in size. Mitral Valve Structurally normal mitral valve without significant stenosis or prolapse. There is no mitral regurgitation. Aortic Valve Structurally normal aortic valve without significant sclerosis or stenosis. There is no aortic regurgitation. Tricuspid Valve Structurally normal tricuspid valve without significant stenosis or regurgitation. Pulmonary artery systolic pressure is normal. Pulmonic Valve Pulmonic valve not well visualized. Pericardium Normal pericardium without effusion. Aorta Normal ascending aorta dimension. CONCLUSIONS Normal left ventricular size, systolic function and wall thickness, with no regional wall motion abnormalities. Normal diastolic function. Left ventricular ejection fraction is estimated at 60%. Normal right ventricular size and systolic function. Mild pulmonary hypertension, RVSP 32.4 mmHg. There are no prior echocardiogram studies to compare. Dr. Mohinder Diaz MD (Electronically Signed) Final Date: 30 June 2019 09:31 S
[2019-06-29 12:56] LABS: Magnesium 1.6 mg/dL (1.7-2.3)
[2019-06-29] MEDS: cefTRIAXone 1,000 MG in sodium chloride 0.9% (plus) 50 ML 100 MG IV (16:51)
[2019-06-29] MEDS: gabapentin 300 mg Capsule PO ×2 (16:52→21:34)
[2019-06-29] MEDS: enoxaparin 60 mg/0.6 mL Syringe 50 MG SUBCUT (16:52)
--- NOTE | 2019-06-29 16:57 | PM.CONSULT ---
Providers/Reason For Consult Consulting Physican/Specialty*: Cardiovascular medicine Reason for Consult*: Syncope, elevated troponin Attending Physician: Shayy Albert DO Primary Care Provider: Luis A Flower MD History of Present Illness History of Present Illness Reshma Perry is a 68 year old male who has stage IVb non-small cell carcinoma of the lung. This is an adenosquamous type cancer. He has been inoperable and is already had chemotherapy and radiation. He has had advancement of the disease despite this. He is awaiting further imaging to determine whether he is eligible for any other treatment. This is an incurable disease. He is lost about 30 pounds during the treatment. He has relatively poor performance status and is generally unwell. Chart states that he is been having episodes of syncope for several weeks now however both he and his deny this. This morning his noticed that he was sitting on the side of the bed before he got up to use the bathroom. She turned around to get off the other side of the bed and suddenly heard him hit the floor. She thinks he was unresponsive for couple minutes. There did not appear to be any loss of respirations. She shook him for a while and finally he came around on his own. He was brought to the emergency room where allegedly his heart rate was in the 40s. I do not see any documentation of that. He was placed on dopamine for a short time in the emergency room but that has been discontinued. Since then his heart rates have been 60-80 and his blood pressure has been within normal range. His EKGs show the heart rates in the 80s with sinus rhythm. He is not had any chest pain. He has a chronic cough. He cannot do very much due to the weakness associated with the cancer and chemotherapy. Review of Systems Const: Reports: fever and chills Resp: Reports: shortness of breath and productive cough Meds/Allergies Home Medications and Allergies Home Medications Medication Instructions Recorded Confirmed Type ascorbic acid (vitamin C) [Vitamin 500 mg PO BID 06/29/19 06/29/19 History C] aspirin 81 mg PO DAILY 06/29/19 06/29/19 History atorvastatin 80 mg PO DAILY 06/29/19 06/29/19 History citalopram 20 mg PO DAILY 06/29/19 06/29/19 History gabapentin 300 mg PO TID 06/29/19 06/29/19 History insulin detemir U-100 [Levemir 15 unit SUBCUT DAILY 06/29/19 06/29/19 History FlexTouch U-100 Insuln] methenamine hippurate 1 g PO BID 06/29/19 06/29/19 History omega 1-fmq-raj-fish oil [Fish Oil] 1 cap PO TID 06/29/19 06/29/19 History oxycodone 15 mg PO Q4H PRN 06/29/19 06/29/19 History pantoprazole 40 mg PO DAILY 06/29/19 06/29/19 History prednisone 10 mg PO BID 06/29/19 06/29/19 History roflumilast [Daliresp] 500 mcg PO DAILY 06/29/19 06/29/19 History Allergies Allergy/AdvReac Type Severity Reaction Status Date / Time No Known Allergies Allergy Verified 06/29/19 04:04 PFSH Acute PFSH: Medical History (Updated 06/29/19 @ 17:17 by Mohinder Diaz MD) Anemia COPD (chronic obstructive pulmonary disease) Coronary artery disease Diabetes mellitus type 2, insulin dependent History of bladder cancer Yearly surveillance cystoscopy History of myocardial infarction Hyperlipidemia Hypertension 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 Followed by Dr. Flower Port-A-Cath in place Tobacco abuse Surgical History (Updated 06/29/19 @ 12:36 by Shayy Albert DO) History of cystoscopy History of hernia surgery Hx of cardiac cath Family History (Updated 06/29/19 @ 12:37 by Shayy Albert DO) Mother Cancer Lung, at the age of 47 Father CAD (coronary artery disease) Lung disease Social History (Updated 06/29/19 @ 12:37 by Shayy Albert DO) Smoking and tobacco status: current every day smoker Alcohol intake: never Substance/Drug Use: never Marital status: Vitals/I&O/Wt Last Vital Signs Temp 97.6 F 06/29/19 16:00 Pulse 59 L 06/29/19 16:15 Resp 16 06/29/19 16:15 BP 113/57 06/29/19 16:15 Pulse Ox 94 06/29/19 16:15 02/25/20 02/25/20 02/25/20 06:59 14:59 22:59 Intake Total 1000.000 / 1000.000 Output Total 300 / 300 Balance 1000.000 / 1000.000 -300 / -300 Weight last 48 hrs Weight 110 lb Physical Exam Narrative: EXAM NARRATIVE: GENERAL: In general he looks ill and is weak, cachectic and with a chronic cough HEENT: Exam within normal limits. NECK: Supple without jugular vein distention. The carotid upstroke is normal without bruits. BACK: Exam normal. LUNGS: Decreased breath sounds, upper airway sounds, wheezes HEART: Regular rate and rhythm. ABDOMEN: Benign without organomegaly or tenderness. EXTREMITIES: No edema. NEUROLOGIC: Exam normal. SKIN: Unremarkable. Data Micro: Micro: Microbiology 06/29/19 04:31 Blood Culture - Pr eliminary Blood SPECIMEN [facility] 06/29/19 04:31 Blood Culture - Pr eliminary Blood SPECIMEN [facility] Other Data: Other data: First troponin 52, second troponin 67. Head CT negative. EKG reveals sinus rhythm at a rate of 85 with an interventricular conduction delay. Magnesium 1.6. A&P Assessment and plan (1) Tobacco abuse: Status: Acute Code(s): Z72.0 - Tobacco use (2) Diabetes mellitus type 2, insulin dependent: Status: Acute Code(s): E11.9 - Type 2 diabetes mellitus without complications; Z79.4 - intermediate designer (current) use of insulin (3) NSTEMI (non-ST elevated myocardial infarction): Status: Acute Code(s): I21.4 - Non-ST elevation (NSTEMI) myocardial infarction (4) COPD (chronic obstructive pulmonary disease): Status: Acute Code(s): J44.9 - Chronic obstructive pulmonary disease, unspecified (5) Coronary artery disease: Status: Acute Code(s): I25.10 - Atherosclerotic heart disease of [place] coronary artery without angina pectoris (6) Hyperlipidemia: Status: Acute Code(s): E78.5 - Hyperlipidemia, unspecified (7) Hypertension: Status: Acute Code(s): I10 - Essential (primary) hypertension (8) Non-small cell carcinoma of lung: Status: Acute Code(s): C34.90 - Malignant neoplasm of unspecified part of unspecified bronchus or lung Additional A&P Information At this point I do not see anything that would require pacemaker. He has been in sinus rhythm from 60-85 since he has been here. His blood pressure has been normal. The history seems a little bit incongruous. The chart states that he has had multiple episodes of syncope over the last several weeks but his and he both deny this. Seems like this was a single solitary episode. 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 As it pertains to the troponin elevation I would not yoanna this given his underlying terminal illness. As long as he is free of any discomfort I do not think there is a need to pursue this. He is not having any unstable findings by EKG. We will follow along. Consult Attestations Medical Necessity Statement: Not applicable Coding Level of Care Code New Pt Acute Poker In for Chg Fwd Patient Type New History Detailed Exam Detailed Medical Decision Making Moderate Complexity Diagnoses Tobacco abuse Z72.0 Diabetes mellitus type 2, insulin dependent E11.9; Z79.4 NSTEMI (non-ST elevated myocardial infarction) I21.4 COPD (chronic obstructive pulmonary disease) J44.9 Coronary artery disease I25.10 Hyperlipidemia E78.5 Hypertension I10 Non-small cell carcinoma of lung C34.90
[2019-06-29 17:13] LABS: Glucose Point of Care 250 mg/dL (70-110)
[2019-06-29] MEDS: oxyCODONE 5 mg IR Tab/Cap 15 MG PO (17:52)
[2019-06-29 17:53] LABS: Chol HDL Ratio 1.87 mg/dL (1.0-5.00); Cholesterol 101 mg/dL (0-200); HDL Cholesterol 54 mg/dL (60-100); LDL Cholesterol Calculated 36 mg/dL (50-129); LDL HDL Ratio 0.67 RATIO (0.00-3.22); Triglycerides 54 mg/dL (0-150)
[2019-06-29] MEDS: azithromycin 500 MG in sodium chloride 0.9% 250 ML 250 MG IV (18:20)
[2019-06-30] VITALS (18 sets, daily range): BP systolic 89–127; BP diastolic 49–75; PULSE 50–85; RESP 8–21; TEMP 36.4–37; O2SAT 87–97
[2019-06-30 04:32] LABS: Hemoglobin 11.7 g/dL (11.7-16.6); Lymphocytes # 0.1 10^3/uL (0.8-4.8); Lymphocytes % 2.2 %; Mean Corpuscular HGB Conc 31.6 g/dL (30.0-36.0); Mean Corpuscular Hemoglobin 28.6 pg (28.0-34.0); Mean Corpuscular Volume 90.5 fL (80-94); Mean Platelet Volume 9.7 fL (7.4-10.4); Monocytes # 0.3 10^3/uL (0.2-0.9); Monocytes % 4.9 %; Neutrophils % 92.6 %; Nucleated Red Blood Cells % 0 %; Platelet Count 143 10^3/cmm (130-400); Red Blood Count 4.09 10^6/uL (4.1-5.3); Red Cell Distribution Width 14.9 % (12.1-15.1); White Blood Count 6.5 10^3/uL (4.0-10.0)
[2019-06-30 04:50] LABS: Blood Urea Nitrogen 16 mg/dL (8-23); Calcium 9.5 mg/dL (8.5-10.5); Carbon Dioxide 24 mmol/L (22-29); Chloride 104 mmol/L (98-107); Glomerular Filtration Rate 213.3 mL/min (90-130); Glucose 194 mg/dL (65-115); Osmolality Calculated 288 mOsm/kg (285-295); Sodium 138 mmol/L (136-145)
[2019-06-30] MEDS: enoxaparin 60 mg/0.6 mL Syringe 50 MG SUBCUT ×2 (05:21→16:48)
[2019-06-30 05:50] LABS: Slide Review Slide Review Perform
--- NOTE | 2019-06-30 06:28 | PC.NURSE ---
SHIFT SUMMARY PT HAS BEEN CONFUSED AT TIMES. PT HAS HAD ADEQUATE URINE OUTPUT. PT HEARTRATE HAS BEEN FROM 47-60 WHILE SLEEPING. PT DID NOT SUSTAIN BELOW 50'S, PT HAS NOT HAD ANY SYNCOPAL EPISODES THRU THIS SHIFT. PT HAS NOT COMPLAINED OF ANY CHEST PAIN.
[2019-06-30 06:46] LABS: Glucose Point of Care 158 mg/dL (70-110)
[2019-06-30 06:57] LABS: Glucose Point of Care 146 mg/dL (70-110)
--- NOTE | 2019-06-30 07:30 | P.PN_ITS ---
Subjective Subjective: Interval history: Reshma has had an uneventful night. Heart rates have been in the 50s and 60s. Blood pressure has been stable. Rhythm has been sinus. No heart block. Apparently he dipped down into the 40s on one occasion but was not symptomatic. No more syncopal episodes. His third troponin went up to 83.6. He is not having any chest pain. Medications: Reviewed: Yes Vitals/I&O/Wt Last Vital Signs Temp 97.8 F 06/30/19 05:28 Pulse 50 L 06/30/19 06:25 Resp 17 06/30/19 05:28 BP 101/75 06/30/19 06:25 Pulse Ox 96 06/30/19 06:25 06/29/19 06/30/19 06/30/19 22:59 06:59 14:59 Intake Total 220 / 220 Output Total 300 / 600 400 / 1000 Balance -80 / -380 -400 / -780 Weight last 48 hrs Weight 107 lb 14.4 oz Weight 110 lb Physical Exam Narrative: EXAM NARRATIVE: GENERAL: In general he is comfortable and fast asleep this morning HEENT: Exam within normal limits. NECK: Supple without jugular vein distention. The carotid upstroke is normal without bruits. BACK: Exam normal. LUNGS: Clear. HEART: Regular rate and rhythm. ABDOMEN: Benign without organomegaly or tenderness. EXTREMITIES: No edema. NEUROLOGIC: Exam normal. SKIN: Unremarkable. Data : 06/30/19 03:30 06/30/19 03:30 Micro: Microbiology 06/29/19 04:31 Blood Culture - Preliminary Blood NEGATIVE TO DATE 06/29/19 04:31 Blood Culture - Preliminary Blood NEGATIVE TO DATE A&P Assessment and plan (1) Tobacco abuse: Status: Acute Code(s): Z72.0 - Tobacco use (2) Diabetes mellitus type 2, insulin dependent: Status: Acute Code(s): E11.9 - Type 2 diabetes mellitus without complications; Z79.4 - skilled nursing (current) use of insulin (3) NSTEMI (non-ST elevated myocardial infarction): Status: Acute Code(s): I21.4 - Non-ST elevation (NSTEMI) myocardial infarction (4) Pneumonia: Status: Acute Code(s): J18.9 - Pneumonia, unspecified organism (5) COPD (chronic obstructive pulmonary disease): Status: Acute Code(s): J44.9 - Chronic obstructive pulmonary disease, unspecified (6) Coronary artery disease: Status: Acute Code(s): I25.10 - Atherosclerotic heart disease of [place] coronary artery without angina pectoris (7) Hyperlipidemia: Status: Acute Code(s): E78.5 - Hyperlipidemia, unspecified (8) Hypertension: Status: Acute Code(s): I10 - Essential (primary) hypertension (9) Non-small cell carcinoma of lung: Status: Acute Code(s): C34.90 - Malignant neoplasm of unspecified part of unspecified bronchus or lung (10) Syncope: Status: Acute Code(s): R55 - Syncope and collapse Additional A&P Information He has had no more episodes of syncope. His rhythm has been sinus. His heart rate is stable. At this point there is no indication for a pacemaker. Given his underlying severe end-stage lung cancer, I do not think it is appropriate to yoanna the troponins. He is not having any angina so I believe we should continue to treat him medically. At this point I would not add any medications. Attestations Medical Necessity Statement*: Not applicable Coding Level of Care Code Acute Transmission Assembler for Chg Fwd History Detailed Exam Detailed Medical Decision Making Moderate Complexity Diagnoses Tobacco abuse Z72.0 Diabetes mellitus type 2, insulin dependent E11.9; Z79.4 NSTEMI (non-ST elevated myocardial infarction) I21.4 Pneumonia J18.9 COPD (chronic obstructive pulmonary disease) J44.9 Coronary artery disease I25.10 Hyperlipidemia E78.5 Hypertension I10 Non-small cell carcinoma of lung C34.90 Syncope R55 Time Spent (min) 25
[2019-06-30] MEDS: gabapentin 300 mg Capsule PO ×3 (09:26→20:07)
[2019-06-30] MEDS: atorvastatin 40 mg Tablet 80 MG PO (09:26)
[2019-06-30] MEDS: roflumilast 500 mcg Tablet PO (09:27)
[2019-06-30] MEDS: pantoprazole DR 40 mg Tablet PO (09:27)
[2019-06-30] MEDS: aspirin 81 mg Chew Tablet PO (09:27)
[2019-06-30] MEDS: citalopram 20 mg Tablet PO (09:27)
[2019-06-30] MEDS: predniSONE 20 mg Tablet 40 MG PO (09:27)
--- NOTE | 2019-06-30 09:39 | PC.NURSE ---
Pt HR converting from SR to a-fib RVR. These episodes last about 1-2 minutes and then the HR converts back to SR. Patient states he feels like his heart is beating a little fast but appears to be in no distress. Patient states I feel this way after I eat sometimes and then it goes away. Call placed to Dr. Albert and voicemail left.
--- NOTE | 2019-06-30 09:58 | ECG_ITS ---
Measurements Intervals [place] Rate: 72 P: 82 VT: 132 QRS: 79 QRSD: 93 T: 71 QT: 384 QTc: 422 SINUS RHYTHM Compared to ECG 06/29/2019 10:10:36 Sinus arrhythmia no longer present Electronically Signed On 06-30-2019 15:18:30 HOME THEATER SPECIALIST by Mohinder Diaz M.D. [email or web address]
--- NOTE | 2019-06-30 10:17 | PC.CHAP ---
Pastoral Care Encounter/Spiritual Assessment Type of Contact [] Declined audiology doctor visit [] Patient/Family/Request visit [] Outpatient visit [] Follow-up visit [] Physician referral [] Code/Alert [x] Routine visit [] Staff referral [] Actively dying [] Patient sleeping [] Family support [] [] Out of room [] Palliative care [] [] Receiving care in room [] Pre-surgical visit [] Trauma [] Long length of stay [x] ICU visit [] Other: Relational/Emotional Strength [] Patient feels connected with others/family/visitors/staff [] Distress [] Loneliness/isolation [] Abandonment Spirituality of Patient [x] Person of Fatoumata [] Attends Rastafari of their Fatoumata [x] Believes in Prayer [] Reads Bible or Baptism materials [] There are Spiritual issues to be addressed Bicycle I Assembler Interventions [x] Prayer [] Active listening [] Non-anxious presence [] Spiritual/emotional support [] Crisis/trauma care [] Spiritual counseling [] Bereavement support [] Provided bereavement packet [] Provided Bible/devotional materials [] Provided toy/stuffed animal, coloring book to patient or family member [] Provided Communion [] Anointing/[place] [] Salvation [x] Completed spiritual assessment [] Other: Impact on Illness or Injury [] Angry [] Fearful [] Anxious [] Often cries [] Exhaustion [] Unable to work [] Unable to attend denominational [] Unable to walk/stand [] Unable to read [] Unable to drive [] Unable to eat/drink [] Unable to sleep [] Unable to be with family [] Patient intubated [] Other: Summary Patient feeling stronger, has a strong desire to return home. Time spent with patient 10 min
[2019-06-30 12:09] LABS: Glucose Point of Care 223 mg/dL (70-110)
[2019-06-30] MEDS: amiodarone 200 mg Tablet 400 MG PO ×2 (12:24→18:41)
--- NOTE | 2019-06-30 13:05 | P.PN_ITS ---
Subjective Subjective: Interval history: Patient awake in bed at time of exam this morning. He denied any chest pain or shortness of breath. Stated that he was feeling better and had no further syncopal episodes, no presyncopal symptoms. He reported that he wanted to go home. Discussed with him a likely need for oxygen at time of discharge and he verbalized understanding. Later called by RN and patient was going in and out of atrial fibrillation with RVR, he would be in sinus rhythm then converted to A. fib RVR with rate in the 120s to 150s and quickly after convert back to sinus rhythm. Vitals/I&O/Wt Last Vital Signs Temp 98.6 F 06/30/19 08:00 Pulse 71 06/30/19 10:00 Resp 14 06/30/19 10:00 BP 99/56 06/30/19 10:00 Pulse Ox 88 L 06/30/19 10:26 06/29/19 06/30/19 06/30/19 22:59 06:59 14:59 Intake Total 220 / 220 300 / 300 Output Total 300 / 600 400 / 1000 Balance -80 / -380 -400 / -780 300 / 300 Weight last 48 hrs Weight 48.943 kg Weight 49.895 kg Physical Exam Const: COMMON NORMALS: oriented x3 and alert GENERAL APPEARANCE: cooperative and frail appearing NUTRITIONAL APPEARANCE: cachectic and thin ORIENTATION/CONSCIOUSNESS: Yes awake, Yes oriented to person, Yes oriented to place and Yes oriented to time HENMT: COMMON NORMALS: normocephalic and head/scalp atraumatic HEAD & SCALP: normocephalic and atraumatic Eye: COMMON NORMALS: PERRL PUPIL: Yes PERRL Neck/C-Spine: COMMON NORMALS: supple GENERAL: Yes normal visual inspection Resp: OTHER: Oxygen by nasal cannula in place, mild accessory muscle use, faint expiratory wheezing bilaterally with prolonged expiratory phase Cardio: COMMON NORMALS: regular rate, regular rhythm and no murmurs RATE: regular rate RHYTHM: regular rhythm GI: COMMON NORMALS: soft to palpation and non-tender INSPECTION: No abdominal distension AUSCULTATION: Yes normoactive bowel sounds PALPATION: Yes soft Extremity: COMMON NORMALS: no clubbing, cyanosis or edema and no calf tenderness Neuro: COMMON NORMALS: oriented x3, CN's II-XII intact bilaterally, moves all extremities and no focal motor deficits SENSORIUM/ORIENTATION: Yes alert, Yes oriented to person, Yes oriented to place and Yes oriented to time SPEECH: speech normal Psych: COMMON NORMALS: mental status grossly normal and cooperative Skin: COMMON NORMALS: no rashes or lesions noted GENERAL SKIN EXAM: no rashes or lesions noted Data : 06/30/19 03:30 06/30/19 03:30 Micro: Microbiology 06/29/19 08:52 Urine Culture - Preliminary Urine,Clean Catch 06/29/19 04:31 Blood Culture - Preliminary Blood NEGATIVE TO DATE 06/29/19 04:31 Blood Culture - Preliminary Blood NEGATIVE TO DATE A&P Assessment and plan (1) NSTEMI (non-ST elevated myocardial infarction): Denies any chest pain. Reported syncopal episodes x2 prior to admission Medical management elected due to other comorbidities Treatment dose Lovenox, aspirin, statin, no beta anamaria due to bradycardia on admission Status: Acute Code(s): I21.4 - Non-ST elevation (NSTEMI) myocardial infarction (2) Pneumonia: Continue Rocephin and azithromycin. Complicated pneumonia with known lung cancer. We will continue to monitor respiratory status closely. Respiratory therapy to assess and treat, oxygen per protocol Status: Acute Code(s): J18.9 - Pneumonia, unspecified organism (3) COPD (chronic obstructive pulmonary disease): Known COPD with continued tobacco abuse. Acute COPD exacerbation Transition to oral prednisone 40mg daily Status: Acute Code(s): J44.9 - Chronic obstructive pulmonary disease, unspecified (4) Coronary artery disease: Known coronary artery disease with a history of stent placement in 2004, followed by Dr. Banegas in the outpatient setting. 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 Will make oncologist aware of admission Recently completed radiation to the cervical spine in April Status: Acute Code(s): C34.90 - Malignant neoplasm of unspecified part of unspecified bronchus or lung (8) Diabetes mellitus type 2, insulin dependent: Has been only taking intermittent insulin at home, will place on sliding scale insulin while inpatient Status: Acute Code(s): E11.9 - Type 2 diabetes mellitus without complications; Z79.4 - predatory animal exterminator (current) use of insulin Additional A&P Information Hypokalemia: resolved Paroxysmal afib: discussed with Dr. Diaz, patient did have some bradycardia overnight into 50s and upper 40s. This morning has episodes of afib with RVR with rate as high as 150 but then quickly converts back to NSR. On treatment dose lovenox already, will continued. Started on Amiodarone 400mg BID. Transfer to [facility] and continue telemetry Syncopal episode x2: Continue telemetry monitoring, plan as above Bacteriuria: Patient with 4+ bacteria on UA, negative nitrites and leuk esterase, on Rocephin for pneumonia as noted above, will continue at this time and follow-up with cultures. Chronic Pain on daily opioids: Continue home pain medication, continue to monitor blood pressure, respiratory status and heart rate closely prior to administration. Neuropathy: Continue home gabapentin History of bladder cancer: Followed by Dr. Mcduffie with cystoscopies yearly DVT prophylaxis: On treatment dose Lovenox due to concern for non-ST elevation [place] Diet: Cardiac CODE STATUS: DNR/DNI, this was discussed with patient and his was at bedside during this discussion. Attestations Medical Necessity Statement*: Patient requires further hospitalization due to NSTEMI, intermittent afib, pneumonia and research psychiatric centerc cancer. Coding Level of Care Code Acute Acid Tender for [facility] Diagnoses NSTEMI (non-ST elevated myocardial infarction) I21.4 Pneumonia J18.9 COPD (chronic obstructive pulmonary disease) J44.9 Coronary artery disease I25.10 Hyperlipidemia E78.5 Hypertension I10 Non-small cell carcinoma of lung C34.90 Diabetes mellitus type 2, insulin dependent E11.9; Z79.4
[2019-06-30 16:13] LABS: Glucose Point of Care 135 mg/dL (70-110)
[2019-06-30] MEDS: azithromycin 500 MG in sodium chloride 0.9% 250 ML 250 MG IV (16:49)
[2019-06-30] MEDS: cefTRIAXone 1,000 MG in sodium chloride 0.9% (plus) 50 ML 100 MG IV (18:41)
[2019-06-30 20:19] LABS: Glucose Point of Care 224 mg/dL (70-110)
[2019-07-01] VITALS (9 sets, daily range): BP systolic 108–125; BP diastolic 52–71; PULSE 47–70; RESP 15–21; TEMP 36.3–36.8; O2SAT 87–97
--- NOTE | 2019-07-01 01:42 | PC.NURSE ---
heart rate dropped as low as 38 when sleeping soundly but not substaining that low, increases to mid 60s when awakened. MMorgan RN
--- NOTE | 2019-07-01 01:49 | PC.NURSE ---
patient maintaining heart rate mid 40s with bigeminal PACs, sleeping asymptomatic. called Dr Cho and reported this to her. no new orders at this time, just keep an eye on him . MMorgan RN
--- NOTE | 2019-07-01 04:06 | PC.NURSE ---
called asking for patient status update, informed her of low irregular heart rate tonight. stated that when he was in the hospital at [facility] several months to a year ago they told him his heart rate dropped really low when he slept but he never followed up on it from there. MMorgan RN
[2019-07-01 04:49] LABS: Basophils % 0.1 %; Hematocrit 35.4 % (42.0-52.0); Hemoglobin 11.6 g/dL (11.7-16.6); Lymphocytes # 0.2 10^3/uL (0.8-4.8); Lymphocytes % 2.2 %; Mean Corpuscular HGB Conc 32.8 g/dL (30.0-36.0); Mean Corpuscular Hemoglobin 29.5 pg (28.0-34.0); Mean Corpuscular Volume 90.1 fL (80-94); Mean Platelet Volume 9.6 fL (7.4-10.4); Monocytes # 0.4 10^3/uL (0.2-0.9); Monocytes % 4.6 %; Neutrophils # 7.9 10^3/uL (1.8-7.7); Neutrophils % 92.7 %; Nucleated Red Blood Cells % 0 %; Platelet Count 184 10^3/cmm (130-400); Red Blood Count 3.93 10^6/uL (4.1-5.3); Red Cell Distribution Width 14.9 % (12.1-15.1); White Blood Count 8.5 10^3/uL (4.0-10.0)
[2019-07-01 05:02] LABS: Anion Gap 12.5 (5-19); Blood Urea Nitrogen 19 mg/dL (8-23); Calcium 9.4 mg/dL (8.5-10.5); Carbon Dioxide 28 mmol/L (22-29); Chloride 106 mmol/L (98-107); Glomerular Filtration Rate 213.3 mL/min (90-130); Glucose 187 mg/dL (65-115); Osmolality Calculated 297 mOsm/kg (285-295); Potassium 3.5 mmol/L (3.5-5.1); Sodium 143 mmol/L (136-145)
[2019-07-01] MEDS: enoxaparin 60 mg/0.6 mL Syringe 50 MG SUBCUT (05:07)
--- NOTE | 2019-07-01 07:24 | PM.PN ---
Subjective Subjective: Interval history: Yesterday, the patient had 2 spontaneous episodes of atrial fibrillation with a rapid ventricular response. Importantly, neither of these was associated with any symptoms such as lightheadedness, dizziness, presyncope or syncope. They spontaneously reverted back to sinus rhythm. I spoke to Dr. Albert about this and we started him on amiodarone. He has not had any further episodes of atrial fibrillation although does have a fair amount of atrial ectopy. Overnight the nurses state that he is heart rate would get down into the 40s while in sinus. At one point very early this morning it was in the 30s still with sinus rhythm. Upon awakening it has come back up into the 50s and 60s for the most part. To my knowledge she has not had any further episodes of atrial fibrillation. He states he did not get much sleep. He was coughing. He has no pain. He wants to go home. Medications: Reviewed: Yes Vitals/I&O/Wt Last Vital Signs Temp 97.4 F L 07/01/19 02:00 Pulse 52 L 07/01/19 04:00 Resp 16 07/01/19 04:00 BP 124/63 07/01/19 04:00 Pulse Ox 93 07/01/19 04:00 06/30/19 07/01/19 07/01/19 22:59 06:59 14:59 Intake Total 400 / 850 180 / 1030 Output Total 320 / 320 300 / 620 Balance 80 / 530 -120 / 410 Weight last 48 hrs Weight 106 lb 6 oz Weight 107 lb 14.4 oz Physical Exam Narrative: EXAM NARRATIVE: GENERAL: In general he is weak and coughing but in no distress HEENT: Exam within normal limits. NECK: Supple without jugular vein distention. The carotid upstroke is normal without bruits. BACK: Exam normal. LUNGS: Clear. HEART: Regular rate and rhythm. ABDOMEN: Benign without organomegaly or tenderness. EXTREMITIES: No edema. NEUROLOGIC: Exam normal. SKIN: Unremarkable. Data : 07/01/19 04:10 07/01/19 04:10 Micro: Microbiology 06/29/19 08:52 Urine Culture - Preliminary Urine,Clean Catch 06/29/19 04:31 Blood Culture - Preliminary Blood NEGATIVE TO DATE 06/29/19 04:31 Blood Culture - Preliminary Blood NEGATIVE TO DATE A&P Assessment and plan (1) Atrial fibrillation: Status: Acute Code(s): I48.91 - Unspecified atrial fibrillation (2) Syncope: Status: Acute Code(s): R55 - Syncope and collapse (3) Tobacco abuse: Status: Acute Code(s): Z72.0 - Tobacco use (4) Diabetes mellitus type 2, insulin dependent: Status: Acute Code(s): E11.9 - Type 2 diabetes mellitus without complications; Z79.4 - buttermaker continuous churn (current) use of insulin (5) Pneumonia: Status: Acute Code(s): J18.9 - Pneumonia, unspecified organism (6) NSTEMI (non-ST elevated myocardial infarction): Status: Acute Code(s): I21.4 - Non-ST elevation (NSTEMI) myocardial infarction (7) COPD (chronic obstructive pulmonary disease): Status: Acute Code(s): J44.9 - Chronic obstructive pulmonary disease, unspecified (8) Coronary artery disease: Status: Acute Code(s): I25.10 - Atherosclerotic heart disease of [place] coronary artery without angina pectoris (9) Hyperlipidemia: Status: Acute Code(s): E78.5 - Hyperlipidemia, unspecified (10) Hypertension: Status: Acute Code(s): I10 - Essential (primary) hypertension (11) Non-small cell carcinoma of lung: Status: Acute Code(s): C34.90 - Malignant neoplasm of unspecified part of unspecified bronchus or lung Additional A&P Information I think it is clear the atrial fibrillation is not because of the syncope. He had 2 episodes yesterday that were sustained but did not cause any symptoms. The bradycardia overnight is probably exacerbated by the amiodarone so I will decrease the dose to 400 mg once daily. I would not add a beta-anamaria for obvious reasons. I also would not anticoagulate him because of his underlying tumor burden. I still believe we should treat the presumed underlying coronary artery disease medically. He is not a good candidate for angiography or any other intervention. I think once we have decreased the amiodarone and he is relatively stable he could be discharged. I do not know that we're going to do a lot more for him in the hospital. I would also decrease his Lovenox to once daily at a relatively small dose. Attestations Medical Necessity Statement*: Not applicable Coding Level of Care Code Established Pt Acute Ramp And Cargo Supervisor for Chg Fwd Patient Type Established History Detailed Exam Detailed Medical Decision Making Moderate Complexity Diagnoses Atrial fibrillation I48.91 Syncope R55 Tobacco abuse Z72.0 Diabetes mellitus type 2, insulin dependent E11.9; Z79.4 Pneumonia J18.9 NSTEMI (non-ST elevated myocardial infarction) I21.4 COPD (chronic obstructive pulmonary disease) J44.9 Coronary artery disease I25.10 Hyperlipidemia E78.5 Hypertension I10 Non-small cell carcinoma of lung C34.90
[2019-07-01 08:22] LABS: Glucose Point of Care 128 mg/dL (70-110)
[2019-07-01] MEDS: aspirin 81 mg Chew Tablet PO (08:40)
[2019-07-01] MEDS: citalopram 20 mg Tablet PO (08:40)
[2019-07-01] MEDS: atorvastatin 40 mg Tablet 80 MG PO (08:40)
[2019-07-01] MEDS: pantoprazole DR 40 mg Tablet PO (08:40)
[2019-07-01] MEDS: predniSONE 20 mg Tablet 40 MG PO (08:40)
[2019-07-01] MEDS: roflumilast 500 mcg Tablet PO (08:40)
[2019-07-01] MEDS: amiodarone 200 mg Tablet 400 MG PO (08:40)
[2019-07-01] MEDS: gabapentin 300 mg Capsule PO ×2 (08:40→15:32)
--- NOTE | 2019-07-01 11:56 | P.DS_ITS ---
Discharge Providers Date of Admission: 06/29/19 12:14 Date of Discharge: July 01, 2019 Attending Provider at Admission: Shayy Albert DO Attending Provider at Discharge: Shayy Albert DO Consults: Dr. Mohinder Diaz, cardiology Primary Care Provider: Luis A Flower MD Diagnoses at Discharge Discharge Diagnosis (1) Atrial fibrillation: Status: Acute Problem details: paroxysmal atrial fibrillation started on Amiodarone 200mg daily, no anticoagulation due to significant tumor size and stage IV lung cancer (2) Syncope: Status: Acute (3) Tobacco abuse: Status: Acute (4) Diabetes mellitus type 2, insulin dependent: Status: Acute (5) Pneumonia: Status: Acute (6) NSTEMI (non-ST elevated myocardial infarction): Status: Acute (7) COPD (chronic obstructive pulmonary disease): Status: Acute (8) Coronary artery disease: Status: Acute (9) Hyperlipidemia: Status: Acute (10) Hypertension: Status: Acute (11) Non-small cell carcinoma of lung: Status: Acute Problem details: 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 Followed by Dr. Flower Reason for Visit Reason for Visit: Reason For Visit: WEAKNESS FALL Hospital Course Hospital Course: Patient was seen and evaluated in the emergency department noted to have concern for syncope and admitted for further evaluation and treatment. He was noted to have episode of bradycardia while in the emergency department with a heart rate in the 40s and reported hypotension, therefore was started on dopamine. This was quickly discontinued as his heart rate and blood pressure improved. He had serial EKG and troponin performed and he had elevation in his delta troponin which placed concern for cardiogenic syncope and non-ST elevation CA, therefore cardiology was consulted. Patient was noted to have concern for developing pneumonia and therefore started on antibiotic coverage. He was also started on steroids due to concern for COPD exacerbation with wheezing on exam. He was monitored closely in the ICU and underwent medical management for non-ST elevation CA. Due to his underlying stage IV lung cancer he was determined to be a candidate for medical management and not for further intervention by cardiology. Patient was monitored on telemetry and note d to have intermittent episodes of atrial fibrillation with RVR. He was started on amiodarone 400 mg. After starting amiodarone he had no further episodes of atrial fibrillation but he did have episodes of bradycardia while sleeping. Due to this concern no further rate medications were initiated. He was then decreased to amiodarone 400 [address]iscuss[address] with Dr. Diaz on date of discharge and patient was cleared for discharge by cardiology and requested to have close follow-up. On date of discharge patient was requesting to discharge to home. He denied any chest pain, no shortness of breath, no further lightheadedness or dizziness. Discussed with patient plan for medication changes and the plan to start him on amiodarone 200 mg daily and to have close follow-up with cardiology. He verbalized understanding and agreed with plan. Patient did have home oxygen qualification performed due to concern for intermittent hypoxia that could be contributing to some of his symptoms at home and he did qualify for oxygen by nasal cannula. He was encouraged to stop smoking. Patient was also discharged to home with home health services. He is to follow-up with his oncologist for re-scheduling his PET scan and for further follow-up due to his stage IV lung cancer. Discharge Summary: Discharge to home with home health Discharge to home with oxygen by nasal cannula, wean as tolerated with goal oxygen saturation of 90 to 92% Started on amiodarone 200 mg daily Not started on any further anticoagulation due to his significant tumor burden and frail status Follow-up with cardiology in 1 week Follow-up with primary care provider in 3 to 5 days Follow-up with Dr. Flower in 1 to 2 weeks Physical Exam Const: COMMON NORMALS: oriented x3 and alert GENERAL APPEARANCE: cooperative and frail appearing NUTRITIONAL APPEARANCE: cachectic and thin ORIENTATION/CONSCIOUSNESS: Yes awake, Yes oriented to person, Yes oriented to place and Yes oriented to time HENMT: COMMON NORMALS: normocephalic and head/scalp atraumatic HEAD & SCALP: normocephalic and atraumatic Eye: COMMON NORMALS: PERRL PUPIL: Yes PERRL Neck/C-Spine: COMMON NORMALS: supple GENERAL: Yes normal visual inspection Resp: OTHER: Oxygen by nasal cannula in place, respirations even and unlabored, faint expiratory wheezing bilaterally with prolonged expiratory phase Cardio: COMMON NORMALS: regular rate, regular rhythm and no murmurs RATE: regular rate RHYTHM: regular rhythm GI: COMMON NORMALS: soft to palpation and non-tender INSPECTION: No abdominal distension AUSCULTATION: Yes normoactive bowel sounds PALPATION: Yes soft Extremity: COMMON NORMALS: no clubbing, cyanosis or edema and no calf tenderness Neuro: COMMON NORMALS: oriented x3, CN's II-XII intact bilaterally, moves all extremities and no focal motor deficits SENSORIUM/ORIENTATION: Yes alert, Yes oriented to person, Yes oriented to place and Yes oriented to time SPEECH: speech normal Psych: COMMON NORMALS: mental status grossly normal and cooperative Skin: COMMON NORMALS: no rashes or lesions noted GENERAL SKIN EXAM: no rashes or lesions noted Discharge Data Data Completed and Pending: Completed Studies During Hospitalization Category Date Time Status CT head wo con* [id number] Urgent Cat Scan 06/29/19 04:00 Completed XR chest 1V clarissa ble [id number] Stat Exams 06/29/19 04:00 Completed CV echo complete* [id number] Routine Ultrasound 06/29/19 12:37 Completed Pending at discharge Category Date Time Status Blood Culture Sta t Lab 06/29/19 04:31 Results Urine Culture Sta t Lab 06/29/19 08:52 Results Labs from last 24 hours 07/01/19 07/01/19 07/01/19 07:52 04:10 04:10 WBC 8.5 RBC 3.93 L Hgb 11.6 L Hct 35.4 L MCV 90.1 MCH 29.5 MCHC 32.8 RDW 14.9 Plt Count 184 MPV 9.6 Neut % (Auto) 92.7 Lymph % (Auto) 2.2 [place] % (Auto) 4.6 Eos % (Auto) 0.0 Baso % (Auto) 0.1 Neut # (Auto) 7.9 H Lymph # (Auto) 0.2 L [place] # (Auto) 0.4 Eos # (Auto) 0.0 Baso # (Auto) 0.0 Nucleated RBC % (a uto) 0 Nucleated RBCs # 0.0 Sodium 143 Potassium 3.5 Chloride 106 Carbon Dioxide 28 Anion Gap 12.5 BUN 19 Creatinine 0.4 L GFR Calculation 213.3 H Glucose 187 H POC Glucose 128 Calculated Osmolal ity 297 H Calcium 9.4 06/30/19 06/30/19 06/30/19 20:15 16:05 12:03 WBC RBC Hgb Hct MCV MCH MCHC RDW Plt Count MPV Neut % (Auto) Lymph % (Auto) [place] % (Auto) Eos % (Auto) Baso % (Auto) Neut # (Auto) Lymph # (Auto) [place] # (Auto) Eos # (Auto) Baso # (Auto) Nucleated RBC % (a uto) Nucleated RBCs # Sodium Potassium Chloride Carbon Dioxide Anion Gap BUN Creatinine GFR Calculation Glucose POC Glucose 224 135 223 Calculated Osmolal ity Calcium Vitals: Last Vital Signs Temp 97.4 F L 07/01/19 02:00 Pulse 70 07/01/19 09:08 Resp 16 07/01/19 04:00 BP 124/63 07/01/19 04:00 Pulse Ox 92 07/01/19 09:08 Discharge Plan Discharge Patient Disposition: Home Health Service Condition: Stable Prescriptions: New prednisone 20 mg Tablet 40 mg PO DAILY 4 Days Qty: 8 RF: 0 albuterol sulfate [Ventolin HFA] 90 mcg/actuation HFA aerosol inhaler 2 inh INHALATION Q6H PRN (Reason: shortness of breath or wheezing) Qty: 6.7 RF: 0 azithromycin 500 mg tablet 500 mg PO DAILY 7 Days Qty: 7 RF: 0 amiodarone 200 mg tablet 200 mg PO DAILY 30 Days Qty: 30 RF: 0 Continued atorvastatin 80 mg tablet 80 mg PO DAILY RF: 0 oxycodone 15 mg tablet 15 mg PO Q4H PRN (Reason: Pain) RF: 0 methenamine hippurate 1 gram tablet 1 g PO BID RF: 0 citalopram 20 mg Tablet 20 mg PO DAILY RF: 0 Vitamin C 500 mg Tablet 500 mg PO BID RF: 0 pantoprazole 40 mg tablet,delayed release (DR/EC) 40 mg PO DAILY RF: 0 gabapentin 300 mg capsule 300 mg PO TID RF: 0 aspirin 81 mg Tablet,Chewable 81 mg PO DAILY RF: 0 Daliresp 500 mcg tablet 500 mcg PO DAILY RF: 0 Held Levemir FlexTouch U-100 Insuln 100 unit/mL (3 mL) insulin pen 15 unit SUBCUT DAILY RF: 0 Hold Instructions: Resume on 07/07/19. hold until further instructed by PCP Discontinued prednisone 10 mg tablet 10 mg PO BID RF: 0 Fish Oil 1,000 mg (120 mg-180 mg) Capsule 1 cap PO TID RF: 0 Discharge Orders: Discharge Order (Routine); Ordered 07/01/19 Ordered By: Shayy Albert Other Ambulatory Orders: DME: Oxygen (Order) Location: None Selected Ordered By: Shayy Albert Referrals: [facility] [Outside] [facility] [Outside] Mohinder Diaz MD [Physician] - 1 week (follow up with MANAGER [facility] in cardiology office in 1 week) Luis A Flower MD [Primary Care Provider] - 2 weeks Luis A Owens DO [Family Provider] - 1-3 days Discharge Diet: Advance as tolerated Discharge Activity: Increase activity as tolerated Activity Restrictions/Additional Instructions: Discharge to home with home health Discharge to home with oxygen by nasal cannula, wean as tolerated with goal oxygen saturation of 90 to 92% Encourage smoking cessation, do not smoke with oxygen Started on amiodarone 200 mg daily Not started on any further anticoagulation due to his significant tumor burden and frail status Follow-up with cardiology in 1 week Follow-up with primary care provider in 3 to 5 days Follow-up with Dr. Flower in 1 to 2 weeks Discharge Attestations Time Spent in Discharge Care*: greater than 30 min Quality Metrics Clinical Quality Measures During this hospital stay, did patient experience: None Coding Level of Care Code Acute Conference Director for g Fwd Diagnoses Atrial fibrillation I48.91 Syncope R55 Tobacco abuse Z72.0 Diabetes mellitus type 2, insulin dependent E11.9; Z79.4 Pneumonia J18.9 NSTEMI (non-ST elevated myocardial infarction) I21.4 COPD (chronic obstructive pulmonary disease) J44.9 Coronary artery disease I25.10 Hyperlipidemia E78.5 Hypertension I10 Non-small cell carcinoma of lung C34.90
--- NOTE | 2019-07-01 16:10 | PC.NURSE ---
Discharge instructions provided and discussed. Home medications thoroughly discussed, list provided.Follow-up appts discussed. Care notes provided, pt declined to go over them at this time. Reiterated NO smoking while on or near the oxygen
[2019-07-04 07:31] LABS: Glucose Point of Care 98 mg/dL (70-110)
== END 2019-07-01 16:08 | disposition home or self-care (01) | DRG 280 ==
LOC: ER 07:11 → ICU 15:12
PROVIDERS: Emergency Medicine; Admitting Provider Family Medicine; Emergency Provider Family Medicine; Family Provider Internal Medicine; PCP Internal Medicine Medical Oncology; Visit Provider Family Medicine
DX: I21.4 Non-ST elevation (NSTEMI) myocardial infarction (principal); J18.9 Pneumonia, unspecified organism; C34.90 Malignant neoplasm of unspecified part of unspecified bronchus or lung; I48.0 Paroxysmal atrial fibrillation; R55 Syncope and collapse; I95.9 Hypotension, unspecified; J44.9 Chronic obstructive pulmonary disease, unspecified; I25.10 Atherosclerotic heart disease of native coronary artery without angina pectoris; E78.5 Hyperlipidemia, unspecified; E87.6 Hypokalemia; I10 Essential (primary) hypertension; E11.40 Type 2 diabetes mellitus with diabetic neuropathy, unspecified; G89.29 Other chronic pain; F45.42 Pain disorder with related psychological factors; Z66 Do not resuscitate; Z79.4 Long term (current) use of insulin; Z92.3 Personal history of irradiation; Z92.21 Personal history of antineoplastic chemotherapy; Z72.0 Tobacco use; Z79.82 Long term (current) use of aspirin
CPT/HCPCS: 12345; 36415; 36416; 36600; 70450; 71045; 80048; 80053; 80061; 80307; 81001; 82140; 82803; 82962; 83605; 83735; 84443; 84484; 85025; 85610; 87040; 87086; 87804; 92610; 93005; 93306; 94640; 94664; 96372; 96375; 97110; 97116; 97162; 97165; 97530; 97535; 99284; A9270; J0456; J0696; J1265; J1650; J1815; J2543; J2930; J7030; J7050; J7512

== ENCOUNTER 2019-07-08 13:36 | Outpatient (CLI) | payer MEDICARE, SELFPAY ==
--- NOTE | 2019-07-09 15:53 | ONC FU_ITS ---
Dr. Flower Patient Follow-Up Note Patient: Reshma Perry Unit #: [id number]: [id number] Dicatated By: Luis A Flower M.D.Date of Visit:Jul 08, 2019 Onc Med Follow-up/Prog Note Chief Complaint: Lung cancer. 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 By clinical evaluation his disease was stage IIIB (T2b, N3, M0), but with subsequent progression to stage IVB (M1c). On 08/31/2018 he had presented to the emergency room with pain in the left side of the chest and heartburn. His evaluation included CT pulmonary angiogram. That study showed no pulmonary emboli, but there was evidence of a spiculated mass in the posterior right lower lobe measuring 5.8 x 5.7 x 4.5 cm. There was possible invasion into the intercostal muscles. Also noted was mediastinal and hilar lymphadenopathy, including a confluent cluster of subcarinal lymph nodes measuring 4.3 x 2.9 cm as well as bilateral paratracheal and hilar lymphadenopathy. Also noted was a 1.4 spiculated nodule at the right lung apex, consistent with early neoplasm versus scar. Transbronchial biopsy of the right lower lobe on 09/17/2018 showed non-small cell carcinoma consistent with adenosquamous carcinoma. The tumor cells were TTF-1 positive. Staging PET/CT on 09/25/2018 showed FDG avid right lower lobe mass with extensive metastatic involvement in the mediastinum but no evidence for distant metastases. His medical illnesses include hypertension, hyperlipidemia, coronary artery disease, and COPD. He has had previous myocardial infarction and coronary angioplasty/stent placement. He has a history of superficial bladder cancer, for which he is now on yearly surveillance cystoscopy, and he also has a history of urethral stricture. He has smoked for more than 50 years, previously up to 3 packs of cigarettes daily, though he had subsequently cut down. INTERIM HISTORY: He began radiation concurrently with weekly carboplatin/Taxol chemotherapy on 11/03/2018. As of 12/09/2018 he had completed 6 weekly chemotherapy infusions. At week 4 his treatment was changed to carboplatin/Abraxane due to steroid related hyperglycemia. He completed radiation on 12/22/2018 to a total dose of [address] on 12/23/2018 showed a slight decrease in the size of the superior segment right lower lobe neoplasm compared to the August 2018 study. Cystic and/or necrotic mediastinal and hilar lymph nodes had slightly decreased in size and number. There was no evidence of disease progression. With those findings she was given the option to begin maintenance immunotherapy with durvalumab. He began cycle 1 on 01/20/2019. Within 2 days he had developed severe weakness and fever. On evaluation in the emergency room, he had evidence of urinary tract infection, which ultimately proved to be due to Enterobacter cloacae. He was ill enough to require hospitalization. He was discharged home 2 days later on antibiotic coverage with Levaquin. His laboratory studies did show a significant decline in his hemoglobin, to 8.3 g. During subsequent follow-up, he remained very weak, and he continued to require frequent IV hydration. His hemoglobin, though, returned to baseline at 11 g. He was seen for a follow-up visit on 02/03/2019. At that point he appeared to be showing some recovery, and I opted to just have him continue with observation/symptomatic management. At his follow-up visit on 02/22/2019 he complained of severe pain in the right shoulder. X-ray was unrevealing. His pain continued to worsen and also involved his neck. A repeat chest CT on 03/09/2019 showed interval decrease in the right lower lobe pleural-based neoplasm, at that point measuring 2.1 x 4.6 x 3.5 cm. A nodular opacity at the right lung base measuring 1.6 x 1.2 cm appeared stable. There was unchanged necrotic anterior mediastinal, AP window, and subcarinal lymphadenopathy. MRI of the cervical spine showed abnormal bone marrow signal involving the C6 vertebral body extending into the posterior elements with erosion of the spinous process and posterior elements. There was extensive posterior element and perispinal soft tissue edema. The reported differential included metastatic disease versus infection. A nuclear medicine WBC scan on 03/30/2019 showed evidence of a lytic bony destructive process throughout the C6 spinal level including pathologic compression of the C6 vertebral body, consistent with metastatic disease. He was then referred to Dr. Martinez for palliative radiation to the cervical spine. He completed treatment on 04/22/2019 to a total dose of 3000 cGy. He was seen here for a follow-up visit on 05/07/2019. He had reported improvement in his neck pain. At that point I had planned to restage with PET/CT, but that became problematic, in part due to his diabetes. On 06/29/2019 he was admitted to the hospital after becoming unresponsive at home and being transported to the emergency room by ambulance. He had evidence of non-ST elevation myocardial infarction. He was treated medically. During that time he also required treatment for atrial fibrillation. It was managed with amiodarone. He was discharged home on 200 mg of amiodarone daily. His Levemir was discontinued, apparently because of some low blood sugars. It was opted to limit his anticoagulation to aspirin. His echocardiogram showed normal left ventricular ejection fraction at 60%. He is seen for a follow-up visit. He is still feeling weak and tired following the recent hospitalization. He has very limited activity. ECOG score is 3. He has good appetite. He had been running fever prior to the hospitalization, but none since then. He does sometimes feel hot, though. He reports having real bad sinus drainage, and he says his lips are sore. His throat feels better now, and he is not having any difficulty swallowing. He has shortness of breath, and he has been on continuous oxygen since the hospitalization. He does not complain of cough, and he has not been having chest pain. He has no GI or complaints. He now has just mild pain in the neck and shoulders. It is managed adequately with medication. He has no other joint or bone pain. He has no focal neurologic symptoms. Medications: Amiodarone HCl 1 (200 mg) Tablet Oral daily, Aspirin 1 Tablet (of 81 mg) Oral daily, Atorvastatin Calcium 1 Tablet (of 80 mg) Oral daily, Citalopram Hydrobromide 1 Tablet (of 20 mg) Oral daily, Daliresp 1 Tablet (of 500 mcg) Oral daily PRN, Dexamethasone (4 mg) Tablet Oral Take as Directed, Docusate Sodium 1 Capsule (of 100 mg) Oral daily, Dutasteride 1 Capsule (of 0.5 mg) Oral daily, Methenamine Hippurate 1 Tablet (of 1 G) Oral b.i.d., Montelukast Sodium 1 Tablet (of 10 mg) Oral daily PRN, Mouthwash Compounding Base 1 tsp Liquid Oral four times a day PRN, oxyCODONE-Acetaminophen 1 Tablet (of 5-325 mg) Oral q 6 hours PRN, Pantoprazole Sodium 1 Tablet (of 40 mg) Tablet, enteric coated Oral daily, predniSONE 1 Tablet (of 20 mg) Oral daily, Prochlorperazine Maleate 1 Tablet (of 10 mg) Oral b.i.d. PRN, Tamsulosin HCl 1 Capsule (of 0.4 mg) Oral b.i.d., Vitamin C 1 Tablet (of 1000 mg) Oral b.i.d. Allergies: Sulfa Antibiotics Review of Systems: Constitutional - He is tired and complains that he has had no energy after getting out of the hospital. He is mainly sedentary. His appetite is good and his weight is down slightly. He has felt hot and feverish. No night sweats. ECOG score is 3, ENMT - He has sinus congestion/drainage. No mouth sores. His throat is feeling much better. No difficulty swallowing, Hematologic/Lymphatic - No abnormal bruising or bleeding, Respiratory - He has shortness of breath and he wears continuous oxygen. No cough. No pleuritic pain or hemoptysis, Cardiovascular - No angina pain. No palpitations, Gastrointestinal - No nausea or vomiting. No heartburn or acid reflux. No diarrhea or constipation. No blood in the stool or black stools, Genitourinary (M) - No dysuria or hematuria. No urinary frequency. No urgency or incontinence, Musculoskeletal - The pain in his back and neck has gotten much better. He is not having to take as much pain medication, Integumentary - No skin complications, Neurologic - No headache or dizziness. No numbness/paresthesias or other focal neurologic symptoms, Psychiatric - No anxiety or depression. No insomnia. Vital Signs: Performed on Jul 08, 2019 14:01 Height - 66.00 in Weight - 99.8 lbs (LOW) BSA - 1.49 sq.m BMI - 16.11 (LOW) Temperature - 98.2 F (LOW) Pulse - 76 /min Respiration - 20 /min BP - 94/48 mm(hg) O2 Sat - 93 % (LOW) Pain - 0 Physical Examination: Constitutional - He appears generally weak and chronically ill, Eyes - Sclerae nonicteric. Conjunctivae clear, ENMT - No lesions noted in the oral cavity, Hematologic/Lymphatic - No cervical, clavicular, or axillary adenopathy, Respiratory - Lungs sound clear with diminished air movement bilaterally, Cardiovascular - Heart rhythm is regular. There is no murmur, gallop, or rub noted, Abdomen - Soft. Liver and spleen are not enlarged. There is no abdominal mass or ascites noted and there is no inguinal adenopathy, Extremities - No edema. There is chronic purpura on both arms, Neurologic - No focal neurologic deficits noted. Impression: 1. 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 By clinical evaluation his disease was stage IIIB (T2b, N3, M0) at initial diagnosis in August 2018, but with subsequent progression to stage IVB (M1c). 2. He had poor performance status, ECOG 2, and he had significant weight loss at initial diagnosis. His other medical illnesses include: 3. COPD. 4. Hypertension. 5. Hyperlipidemia. 6. Coronary artery disease. 7. History of superficial bladder cancer. 8. He has a history of urethral stricture. 9. Anxiety/depression. He began radiation concurrently with weekly carboplatin/Taxol chemotherapy on 11/03/2017. As of 12/09/2018 he had completed 6 weekly chemotherapy infusions. Beginning with week 4 his treatment was changed to carboplatin/Abraxane due to steroid related hyperglycemia. He completed radiation on 12/22/2018 to a total dose of 6600 cGy. His restaging chest CT on 12/23/2018 showed slight decrease in the right lower lobe pulmonary neoplasm and in the mediastinal and hilar lymph nodes. There was no evidence of disease progression. Given those findings, he was given the option to begin maintenance immunotherapy with durvalumab. He began cycle 1 on 01/20/2019. Within 2 days had developed acute illness with severe weakness and fever. This was thought to be due to urinary tract infection, and his urine culture ultimately did grow Enterobacter cloacae. He was given antibiotic therapy with Levaquin. During that time, he also had become significantly anemic. During subsequent follow-up he remained weak, and he continued to require frequent IV hydration. His hemoglobin, though, returned to baseline at 11 g. During subsequent followup he appeared to be showing gradual recovery. However, at his follow-up visit on 02/22/2019 he had developed new pain in the right shoulder and arm and subsequently in his neck. Repeat chest CT showed residual pleural-based right lower lobe mass measuring 2.1 x 4.6 x 3.5 cm, but it had decreased from the prior study. His subsequent MRI and nuclear medicine WBC scan showed evidence of metastatic involvement of the C6 vertebral body with associated pathologic compression fracture. He was referred to Dr. Martinez for palliative radiation to the cervical spine. He completed treatment on 04/22/2019 to a total dose of 3000 cGy. He had a very good clinical response. On 06/29/2019 he was admitted to the hospital after he became unresponsive at home. He was found to have acute non-ST elevation myocardial infarction. He was managed medically. His clinical course was complicated by atrial fibrillation, which was managed adequately with amiodarone. Since discharge from the hospital he has continued to have poor performance status, but he does appear stable from a cardiac standpoint. He has not yet completed any additional staging for his lung cancer. Plan: He was finally able to get scheduled for restaging PET/CT next week. We will hopefully get that study completed, assuming his blood sugars are not running too high. We can then consider further treatment for his lung cancer, as indicated, assuming his clinical status remains stable. In the meantime, I also will request a next generation sequencing study from his initial biopsy. Signed By: Luis A Flower M.D. <<Signature on File>>
== END 2019-07-08 13:37 | disposition home or self-care (01) ==
LOC: ONCMED 13:39
PROVIDERS: Family Provider Internal Medicine; Visit Provider Internal Medicine Medical Oncology
DX: C34.31 Malignant neoplasm of lower lobe, right bronchus or lung (principal); C78.1 Secondary malignant neoplasm of mediastinum; C79.51 Secondary malignant neoplasm of bone; I10 Essential (primary) hypertension; E78.5 Hyperlipidemia, unspecified; I25.10 Atherosclerotic heart disease of native coronary artery without angina pectoris; J44.9 Chronic obstructive pulmonary disease, unspecified; I21.4 Non-ST elevation (NSTEMI) myocardial infarction; F17.210 Nicotine dependence, cigarettes, uncomplicated; G89.3 Neoplasm related pain (acute) (chronic); I48.91 Unspecified atrial fibrillation; F41.8 Other specified anxiety disorders; Z79.82 Long term (current) use of aspirin; Z79.891 Long term (current) use of opiate analgesic; Z79.899 Other long term (current) drug therapy; Z79.52 Long term (current) use of systemic steroids; Z92.3 Personal history of irradiation; Z92.21 Personal history of antineoplastic chemotherapy; Z92.25 Personal history of immunosuppression therapy; Z87.440 Personal history of urinary (tract) infections; Z95.5 Presence of coronary angioplasty implant and graft; Z85.51 Personal history of malignant neoplasm of bladder; Z99.81 Dependence on supplemental oxygen
CPT/HCPCS: 99214

== ENCOUNTER 2019-10-21 13:24 | Outpatient (CLI) | payer MEDICARE, SELFPAY ==
--- NOTE | 2019-10-21 13:36 | MR_ITS ---
WS: [id number] MRI HEAD WITH CONTRAST TECHNIQUE: Sagittal T1, T2 axial, T2 axial FLAIR, axial susceptibility weighted imaging, axial diffus ion weighted images, and coronal T2 images were obtained. Pre and post-T1 axial and post T1 coronal i mages. ADC and FSPGR images. CLINICAL INFORMATION: LUNG CANCER COMPARISON: CT head June 29, 2019 and PET/CT July 15, 2019 FINDINGS: No evidence of restricted diffusion to suggest acute ischemia. Ventricular system and basal cisterns are patent. Moderate small vessel changes. Moderate parenchymal volume loss. Normal posterior fossa. Normal vascular flow voids at the skull base. No extra-axial fluid collections. No evidence of mass o r mass effect. Paranasal sinuses and mastoid air cells are well aerated. Normal posterior nasopharynx . Normal parapharyngeal fat. Benign partially empty sella. No hemosiderin on susceptibly weighted images. Moderate symmetric atrophy involving the temporal lobe s and hippocampal formations. Dural venous sinuses are patent. Small enhancing lesion at the right cerebellopontine angle measuring 5.6 x 3.0 mm suspicious for smal l meningioma or schwannoma versus incidental vascular malformation. This can be followed up in 3 quynh hs with MRI head without and with gadolinium enhancement with IAC protocol. Otherwise no enhancing in tracranial lesions. No convincing evidence of intracranial metastatic disease. MR/MR head wo/w con [id number] IMPRESSION: 1. No evidence of restricted diffusion to suggest acute ischemia. 2. Tiny enhancing 5 x 3 mm right cerebellopontine angle lesion just above the IAC. Findings are suspicious for small meningioma or schwannoma versus small va scular malformation. This can be followed up in 3 months with MR of the head wi thout and with gadolinium enhancement with IAC protocol. 3. Otherwise no enhancing intracranial metastatic lesions. No convincing evide nce of intracranial metastatic disease. 4. Moderate small vessel changes with moderate parenchymal volume loss. 5. Paranasal sinuses and mastoid air cells are well aerated. 6. Mild to moderate symmetric atrophy involving the temporal lobes and hippoca mpal formations.
== END 2019-10-21 13:25 | disposition home or self-care (01) ==
LOC: RADWPI 13:30
PROVIDERS: Family Provider Internal Medicine; PCP Internal Medicine; Visit Provider Internal Medicine Medical Oncology
DX: C34.31 Malignant neoplasm of lower lobe, right bronchus or lung (principal); G93.89 Other specified disorders of brain; G31.9 Degenerative disease of nervous system, unspecified
CPT/HCPCS: 70553; A9579

== ENCOUNTER 2019-10-28 12:33 | Emergency (ER) | payer MEDICARE, OTHER, SELFPAY ==
[2019-10-28 12:49] VITALS: BP 111/76; PULSE 85; RESP 14; TEMP 36.7; O2SAT 94; BMI 16.2
[2019-10-28 14:02] LABS: Basophils # 0.1 10^3/uL (0.0-0.1); Eosinophils # 0.1 10^3/uL (0.0-0.8); Eosinophils % 0.8 %; Hematocrit 47.3 % (42.0-52.0); Lymphocytes # 0.6 10^3/uL (0.8-4.8); Lymphocytes % 8.3 %; Mean Corpuscular HGB Conc 31.7 g/dL (30.0-36.0); Mean Corpuscular Hemoglobin 29.1 pg (28.0-34.0); Mean Corpuscular Volume 91.8 fL (80-94); Mean Platelet Volume 8.7 fL (7.4-10.4); Monocytes # 0.9 10^3/uL (0.2-0.9); Monocytes % 12.3 %; Neutrophils # 5.5 10^3/uL (1.8-7.7); Neutrophils % 76.8 %; Nucleated Red Blood Cells % 0 %; Platelet Count 337 10^3/cmm (130-400); Red Blood Count 5.15 10^6/uL (4.1-5.3); Red Cell Distribution Width 13.9 % (12.1-15.1); White Blood Count 7.1 10^3/uL (4.0-10.0)
[2019-10-28 14:51] LABS: Alanine Aminotransferase 22 U/L (0-41); Albumin Level 3.8 g/dL (3.5-5.2); Alkaline Phosphatase 118 IU/L (40-130); Anion Gap 20.2 (5-19); Aspartate Amino Transferase 16 U/L (0-40); Blood Urea Nitrogen 10 mg/dL (8-23); Calcium 10.1 mg/dL (8.5-10.5); Carbon Dioxide 28 mmol/L (22-29); Chloride 95 mmol/L (98-107); Globulin 3.4 g/dL (1.3-4.6); Glomerular Filtration Rate 111.5 mL/min (90-130); Glucose 120 mg/dL (65-115); Lipase 11 U/L (13-60); Osmolality Calculated 285 mOsm/kg (285-295); Potassium 4.2 mmol/L (3.5-5.1); Sodium 139 mmol/L (136-145); Total Bilirubin 0.4 mg/dL (0.15-1.2); Total Protein 7.2 g/dL (6.6-8.7)
[2019-10-28 14:53] LABS: Lactic Sepsis W/Reflex 1.4 mmol/L (0.5-2.2)
[2019-10-28 14:56] VITALS: PULSE 71; RESP 16; O2SAT 94
[2019-10-28 15:00] VITALS: BP 131/80
--- NOTE | 2019-10-28 15:00 | CTR_ITS ---
PROCEDURE INFORMATION: Exam: CT Abdomen And Pelvis With Contrast Exam date and time: 10/28/2019 4:56 PM Age: 69 years old Clinical indication: Nausea and vomiting; Additional info: Nausea, vomiting TECHNIQUE: Imaging protocol: Computed tomography of the abdomen and pelvis with intravenous contrast. Radiation optimization: All CT scans at this facility use at least one of these dose optimization techniques: automated exposure control; mA and/or kV adjustment per patient size (includes targeted exams where dose is matched to clinical indication); or iterative reconstruction. Contrast material: OMN 300; Contrast volume: 75 ml; Contrast route: INTRAVENOUS (IV); COMPARISON: No relevant prior studies available. RADIATION DOSE METRICS: Total DLP (mGy-cm): 484.92 FINDINGS: Lungs: Limited assessment lung bases reveals bullous emphysema. Tiny granuloma left lower lobe along the pleural margin. Focal pleural thickening only partially imaged bilateral posterior muñiz of the lower lobes. Unable to evaluate chronicity without prior imaging. Micro cardia. Coronary artery disease. Liver: Numerous low-density structures peppered throughout the hepatic parenchyma with concern for metastatic disease. Largest in the right hepatic lobe near the dome measures approximately 17 mm in diameter and the dominant left hepatic lobe 12 mm. Gallbladder and bile ducts: Gallbladder free of cholelithiasis. No visible intra or extrahepatic biliary ectasia. Pancreas: The pancreas is atrophic but appears otherwise unremarkable. No visible pancreatic ductal ectasia. Spleen: Splenic calcified granulomas. Spleen otherwise unremarkable. Adrenals: Normal. No mass. Kidneys and ureters: Right nephrolithiasis of which there are at least 4 foci the largest measuring approximately 3 mm. No hydronephrosis or perinephric fluid bilaterally. No visible left-sided nephrolithiasis. Stomach and bowel: Limited assessment of the bowel due to the absence of oral contrast. Grossly no visible evidence of acute diverticulitis. Nonobstructive bowel pattern. Appendix: No evidence of appendicitis. Intraperitoneal space: Tiny amount of free fluid in the cecal pericolonic space. Clinical significance indeterminate. No generalized ascites. Vasculature: The abdominal aorta is nonaneurysmal but demonstrates extensive arterial sclerotic disease. Lymph nodes: In the rectovesical space is a 33 mm x 22 mm x 31 mm structure that it has the appearance of a necrotic lymph node. Within the left perirectal space is a structure that measures approximately 24 mm in maximum diameter that also has the appearance of a necrotic lymph node. Concern for malignant metastatic lymphadenopathy. Consideration might be given to metastatic prostate carcinoma. Bladder: Diffuse bladder wall thickening which can be seen in chronic cystitis or from chronic partial bladder outlet obstruction. Reproductive: Prostate hypertrophy. Bones/joints: Osteoporosis. Currently no visible osteolytic or osteoblastic destructive process within the field of view. Mild degenerative disease. Soft tissues: Evidence of a previous midline incision with surgical sutures in place. Other findings: Cachexia. CT/CT abdomen pelvis w con* [id number] IMPRESSION: 1. Findings raise concern for diffuse hepatic metastatic disease. 2. Two suspected necrotic metastatic lymph nodes within the pelvis as detailed in text above. 3. Query metastatic prostate cancer. 4. Rare small foci of nephrolithiasis right kidney. 5. Bullous emphysema. 6. Focal pleural thickening only partially imaged bilateral posterior muñiz of the lower lobes. Unable to evaluate chronicity without prior imaging. 7. Other nonurgent, nonemergent, chronic, and age related findings as detailed in text above. Radiation Dose CTDIVOL = (mGy): DLP = 484.92 (mGy-cm)
--- NOTE | 2019-10-28 15:59 | ED_ITS ---
HPI - Nausea/Vomiting/Diarrhea General: Chief complaint: Nausea/Vomiting/Diarrhea Stated complaint: n/v, difficulty voiding Time Seen by Provider: 10/28/19 14:50 Source: patient and family Mode of arrival: ambulatory History of Present Illness: HPI Narrative: Patient is a 69-year-old gentleman with a history of lung cancer who presents to the emergency department with nausea and vomiting that has been ongoing for about 2 weeks. No known aggravating or relieving factors, however he vomits after he eats any meals or takes his medicine. He has lost some weight because of this. He had a fever about 2 weeks ago but that has resolved after he was given some antibiotics by his primary care provider. He denies dysuria although he does have some difficulty urinating and has to self cath once every couple of weeks. No diarrhea or constipation. MD elicited complaint: nausea and vomiting Associated nausea: Yes Associated symtoms: Reports nausea; Denies change in vision, dysuria, headache(s) or palpitations Review of Systems General: Reports: 10 or more systems reviewed and unremarkable except in HPI and below Const: Denies: fever(s), chills or body aches Eyes: Denies: change in vision or blurry vision ENMT: Denies: throat pain, enlarged tonsils, odynophagia, hoarseness, mouth pain or swelling of lips/tongue Card: Denies: palpitations, irregular heart rhythm, edema or swelling of feet/ankles Resp: Denies: dyspnea, productive cough or non-productive cough GI: Reports: nausea and vomiting : Denies: flank pain, dysuria, urinary frequency, urinary urgency or urinary hesitancy Musc: Denies: neck pain, back pain or extremity swelling Skin/Breast: Denies: rash, pruritus or erythema Neuro: Denies: headache(s), numbness in extremities or weakness in extremities Endo: Denies: polyuria, polydipsia or tired all the time PFSH ED PFSH: Medical History (Reviewed 10/28/19 @ 16:01 by Kelsy Dias MD, [facility] [place]) Anemia Atrial fibrillation paroxysmal atrial fibrillation started on Amiodarone 200mg daily, no anticoagulation due to significant tu mor size and stage IV lung cancer COPD (chronic obstructive pulmonary disease) Coronary artery disease Diabetes mellitus type 2, insulin dependent History of bladder cancer Yearly surveillance cystoscopy History of myocardial infarction Hyperlipidemia Hypertension 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 Followed by Dr. Flower Port-A-Cath in place Tobacco abuse Surgical History (Reviewed 10/28/19 @ 16:01 by Kelsy Dias MD, [facility] [place]) History of cystoscopy History of hernia surgery Hx of cardiac cath Family History (Reviewed 10/28/19 @ 16:01 by Kelsy Dias MD, [facility] [place]) Mother Cancer Lung, at the age of 47 Father CAD (coronary artery disease) Lung disease Social History (Reviewed 10/28/19 @ 16:01 by Kelsy Dias MD, [facility] [place]) Smoking and tobacco status: current every day smoker smokeless tobacco Alcohol intake: never Marital status: Physical Exam Const: COMMON NORMALS: no acute distress, average body habitus, patient oriented x3, no limitations, healthy appearing, alert and well nourished HENMT: COMMON NORMALS: normocephalic, atraumatic and moist oral mucous membranes HEAD & SCALP: normocephalic and atraumatic Neck/C-Spine: COMMON NORMALS: no meningeal signs and no JVD Resp: COMMON NORMALS: normal respiratory effort, No retractions, No use of accessory muscles, clear to auscultation bilaterally and percussion normal AUSCULTATION: clear to auscultation bilaterally PERCUSSION: percussion normal Cardio: COMMON NORMALS: no JVD, regular rate, regular rhythm, S1 normal heart sound present, S2 normal heart sound present, No gallops present (Cardio), No clicks present (Cardio), No murmurs present (Cardio), No rub (Cardio) and Peripheral pulses 2+ throughout RATE: regular rate RHYTHM: regular rhythm HEART SOUNDS: S1 normal heart sound present and S2 normal heart sound present PERIPHERAL PULSES: Peripheral pulses 2+ throughout GI: COMMON NORMALS: Normal to inspection, nondistended, normoactive bowel sounds present, Soft to palpation, non-tender, No hepatosplenomegaly present, no masses and no bruits PALPATION: Yes Soft to palpation and Yes No hepatosplenomegaly present : COMMON NORMALS: Yes no CVA tenderness BLADDER/KIDNEY EXAM: Yes no CVA tenderness Back/Pelvis: COMMON NORMALS: no CVA tenderness Extremity: COMMON NORMALS: normal to inspection, full ROM, capillary refill normal, no calf tenderness and no pedal edema Neuro: COMMON NORMALS: patient oriented x3 SENSORIUM/ORIENTATION: Yes alert MENINGEAL SIGNS: Yes no meningeal signs Skin: COMMON NORMALS: no rashes or lesions noted, no wounds, turgor normal, no jaundice, no petechiae and no mottling GENERAL SKIN EXAM: no rashes or lesions noted and turgor normal Course Reevaluation(s): Reevaluation #1: Patient with nausea and vomiting. He has a history of metastatic lung cancer but no documented liver metastasis. On evi luation in the ED labs were unremarkable other than ketones in his urine suggesting dehydration/starvation. No other clinical findings of dehydration. I had spoken with Dr. Fong who is on-call for Dr. Flower and he thought it would be appropriate to admit him overnight for hydration and antiemetics, he also wanted a head CT. The patient recently had an MRI about a week ago of his brain which was negative. The patient however refused to be hospitalized. He felt much better after the fluid bolus and states he wants to go home. The hospitalist, Dr. Upton got in touch with Dr. Flower who is the patient's oncologist and the patient apparently had an appointment with Dr. Flower today but the patient was unaware. They have rescheduled the appointment for tomorrow, so he will be seen by the oncologist tomorrow. Patient will be discharged home with no new orders. The patient voiced understanding and is in agreement with the plan Time: 18:37 Vital Signs: Vital signs: Vital Signs Temperature 98.0 F 10/28/19 12:49 Pulse Rate 84 10/28/19 18:56 Respiratory Rate 14 10/28/19 18:56 Blood Pressure 101/78 10/28/19 18:56 Pulse Oximetry 95 10/28/19 18:56 MDM - Nausea/Vomiting/Diarrhea MDM Narrative: Medical decision making narrative: 69-year-old gentleman with nausea and vomiting. He has a history of metastatic lung cancer. Patient obtain significant improvement following IV fluid hydration. Evaluation was otherwise unremarkable other than showing new metastasis to his liver. The patient refused to be admitted to the hospital and wanted to be discharged home. He will be seen by his oncologist tomorrow. He has questionable urinary tract infection but he is currently on Levaquin for this. Medical Records: Attestation: I reviewed the patient's medical records. Lab Data: Attestation: I reviewed the patient's lab results. Labs: Lab Results 10/28/19 10/28/19 10/28/19 Range/Units 13:53 13:53 13:53 WBC 7.1 (4.0-10.0) 10^3/ uL RBC 5.15 (4.1-5.3) 10^6/u L Hgb 15.0 (11.7-16.6) g/dL Hct 47.3 (42.0-52.0) % MCV 91.8 (80-94) fL MCH 29.1 (28.0-34.0) pg MCHC 31.7 (30.0-36.0) g/dL RDW 13.9 (12.1-15.1) % Plt Count 337 (130-400) 10^3/c mm MPV 8.7 (7.4-10.4) fL Neut % (Auto) 76.8 % Lymph % (Auto) 8.3 % Ida % (Auto) 12.3 % Eos % (Auto) 0.8 % Baso % (Auto) 1.0 % Neut # (Auto) 5.5 (1.8-7.7) 10^3/u L Lymph # (Auto) 0.6 L (0.8-4.8) 10^3/u L Ida # (Auto) 0.9 (0.2-0.9) 10^3/u L Eos # (Auto) 0.1 (0.0-0.8) 10^3/u L Baso # (Auto) 0.1 (0.0-0.1) 10^3/u L Nucleated RBC % (a uto) 0 % Nucleated RBCs # 0.0 /100WBC Sodium 139 (136-145) mmol/L Potassium 4.2 (3.5-5.1) mmol/L Chloride 95 L (98-107) mmol/L Carbon Dioxide 28 (22-29) mmol/L Anion Gap 20.2 H (5-19) BUN 10 (8-23) mg/dL Creatinine 0.7 (0.7-1.2) mg/dL GFR Calculation 111.5 (90-130) mL/min Glucose 120 H (65-115) mg/dL Calculated Osmolal ity 285 (285-295) mOsm/k g Lactic Acid 1.4 (0.5-2.2) mmol/L Calcium 10.1 (8.5-10.5) mg/dL Total Bilirubin 0.4 (0.15-1.2) mg/dL AST 16 (0-40) U/L ALT 22 (0-41) U/L Alkaline Phosphata se 118 (40-130) IU/L Total Protein 7.2 (6.6-8.7) g/dL Albumin 3.8 (3.5-5.2) g/dL Globulin 3.4 (1.3-4.6) g/dL Lipase 11 L (13-60) U/L Urine Color (Yellow) Urine Appearance (CLEAR) Urine pH (5-7) Ur Specific Gravit y (1.005-1.030) Urine Protein (Negative) Urine Glucose (UA) (Normal) Urine Ketones (Negative) Urine Blood (Negative) Urine Nitrate (Negative) Urine Bilirubin (NEGATIVE) Urine Urobilinogen (Negative) mg/dL Ur Leukocyte Analy ase (Negative) Urine RBC (0-2) /hpf Urine WBC (0-5) /hpf Ur Squamous Epith Cells (0-5) Calcium Oxalate Cr ystal /hpf Amorphous Sediment Urine Bacteria (NONE) Urine Mucus Urine Yeast 10/28/19 Range/Units 16:17 WBC (4.0-10.0) 10^3/ uL RBC (4.1-5.3) 10^6/u L Hgb (11.7-16.6) g/dL Hct (42.0-52.0) % MCV (80-94) fL MCH (28.0-34.0) pg MCHC (30.0-36.0) g/dL RDW (12.1-15.1) % Plt Count (130-400) 10^3/c mm MPV (7.4-10.4) fL Neut % (Auto) % Lymph % (Auto) % Ida % (Auto) % Eos % (Auto) % Baso % (Auto) % Neut # (Auto) (1.8-7.7) 10^3/u L Lymph # (Auto) (0.8-4.8) 10^3/u L Ida # (Auto) (0.2-0.9) 10^3/u L Eos # (Auto) (0.0-0.8) 10^3/u L Baso # (Auto) (0.0-0.1) 10^3/u L Nucleated RBC % (a uto) % Nucleated RBCs # /100WBC Sodium (136-145) mmol/L Potassium (3.5-5.1) mmol/L Chloride (98-107) mmol/L Carbon Dioxide (22-29) mmol/L Anion Gap (5-19) BUN (8-23) mg/dL Creatinine (0.7-1.2) mg/dL GFR Calculation (90-130) mL/min Glucose (65-115) mg/dL Calculated Osmolal ity (285-295) mOsm/k g Lactic Acid (0.5-2.2) mmol/L Calcium (8.5-10.5) mg/dL Total Bilirubin (0.15-1.2) mg/dL AST (0-40) U/L ALT (0-41) U/L Alkaline Phosphata se (40-130) IU/L Total Protein (6.6-8.7) g/dL Albumin (3.5-5.2) g/dL Globulin (1.3-4.6) g/dL Lipase (13-60) U/L Urine Color Yellow (Yellow) Urine Appearance Clear (CLEAR) Urine pH 5 (5-7) Ur Specific Gravit y 1.025 (1.005-1.030) Urine Protein Neg (Negative) Urine Glucose (UA) Norm (Normal) Urine Ketones 2+ H (Negative) Urine Blood Trace H (Negative) Urine Nitrate Negative (Negative) Urine Bilirubin 1+ H (NEGATIVE) Urine Urobilinogen 1 H (Negative) mg/dL Ur Leukocyte Analy ase Negative (Negative) Urine RBC 5-10 H (0-2) /hpf Urine WBC 5-10 H (0-5) /hpf Ur Squamous Epith Cells 0-4 H (0-5) Calcium Oxalate Cr ystal 15-25 H /hpf Amorphous Sediment Not Reportable Urine Bacteria 3+ H (NONE) Urine Mucus 3+ Urine Yeast 2+ H Imaging Data^: CT Abd/Pel: Radiologist's impression: [place] [address] [address] [address] Scan Report Signed Patient: [place] #: [id number] : 1950Acct#:[id number] Age/Sex: 69 / MADM Date: 10/28/19 Loc: ERRoom/Bed: Attending Dr: Ordering Provider/Ordering MD: Kelsy Dias MD, LISA Date of Service: 10/28/19 Procedure(s): CT abdomen pelvis w con* [id number] Accession Number(s): [id number] Report Number: [id number] PROCEDURE INFORMATION: Exam: CT Abdomen And Pelvis With Contrast Exam date and time: 10/28/2019 4:56 PM Age: 69 years old Clinical indication: Nausea and vomiting; Additional info: Nausea, vomiting TECHNIQUE: Imaging protocol: Computed tomography of the abdomen and pelvis with intravenous contrast. Radiation optimization: All CT scans at this facility use at least one of these dose optimization techniques: automated exposure control; mA and/or kV adjustment per patient size (includes targeted exams where dose is matched to clinical indication); or iterative reconstruction. Contrast material: OMN 300; Contrast volume: 75 ml; Contrast route: INTRAVENOUS (IV); COMPARISON: No relevant prior studies available. RADIATION DOSE METRICS: Total DLP (mGy-cm): 484.92 FINDINGS: Lungs: Limited assessment lung bases reveals bullous emphysema. Tiny granuloma left lower lobe along the pleural margin. Focal pleural thickening only partially imaged bilateral posterior muñiz of the lower lobes. Unable to evaluate chronicity without prior imaging. Micro cardia. Coronary artery disease. Liver: Numerous low-density structures peppered throughout the hepatic parenchyma with concern for metastatic disease. Largest in the right hepatic lobe near the dome measures approximately 17 mm in diameter and the dominant left hepatic lobe 12 mm. Gallbladder and bile ducts: Gallbladder free of cholelithiasis. No visible intra or extrahepatic biliary ectasia. Pancreas: The pancreas is atrophic but appears otherwise unremarkable. No visible pancreatic ductal ectasia. Spleen: Splenic calcified granulomas. Spleen otherwise unremarkable. Adrenals: Normal. No mass. Kidneys and ureters: Right nephrolithiasis of which there are at least 4 foci the largest measuring approximately 3 mm. No hydronephrosis or perinephric fluid bilaterally. No visible left-sided nephrolithiasis. Stomach and bowel: Limited assessment of the bowel due to the absence of oral contrast. Grossly no visible evidence of acute diverticulitis. Nonobstructive bowel pattern. Appendix: No evidence of appendicitis. Intraperitoneal space: Tiny amount of free fluid in the cecal pericolonic space. Clinical significance indeterminate. No generalized ascites. Vasculature: The abdominal aorta is nonaneurysmal but demonstrates extensive arterial sclerotic disease. Lymph nodes: In the rectovesical space is a 33 mm x 22 mm x 31 mm structure that it has the appearance of a necrotic lymph node. Within the left perirectal space is a structure that measures approximately 24 mm in maximum diameter that also has the appearance of a necrotic lymph node. Concern for malignant metastatic lymphadenopathy. Consideration might be given to metastatic prostate carcinoma. Bladder: Diffuse bladder wall thickening which can be seen in chronic cystitis or from chronic partial bladder outlet obstruction. Reproductive: Prostate hypertrophy. Bones/joints: Osteoporosis. Currently no visible osteolytic or osteoblastic destructive process within the field of view. Mild degenerative disease. Soft tissues: Evidence of a previous midline incision with surgical sutures in place. Other findings: Cachexia. CT/CT abdomen pelvis w con* [id number] IMPRESSION: 1. Findings raise concern for diffuse hepatic metastatic disease. 2. Two suspected necrotic metastatic lymph nodes within the pelvis as detailed in text above. 3. Query metastatic prostate cancer. 4. Rare small foci of nephrolithiasis right kidney. 5. Bullous emphysema. 6. Focal pleural thickening only partially imaged bilateral posterior muñiz of the lower lobes. Unable to evaluate chronicity without prior imaging. 7. Other nonurgent, nonemergent, chronic, and age related findings as detailed in text above. Radiation Dose CTDIVOL = (mGy): DLP = 484.92 (mGy-cm) Dictated By:Ruddy Luna Signed By:Ruddy LunaSigncal Date/Time:10/28/191741 DD/ 39 Discharge Plan Discharge Patient Disposition: Home, Self-Care Clinical Impression: Nausea & vomiting Qualifiers: Vomiting type: unspecified Vomiting Intractability: non-intractable Qualified Code(s): R11.2 - Nausea with vomiting, unspecified Condition: Stable Prescriptions: Continued tamsulosin [Flomax] 0.4 mg capsule 0.4 mg PO BID RF: 0 amiodarone 200 mg tablet 200 mg PO DAILY Qty: 90 RF: 2 nitroglycerin 0.4 mg tablet, sublingual 0.4 mg SUBLINGUAL Q5M PRN (Reason: chest pain) Qty: 25 RF: 3 atorvastatin 80 mg tablet 80 mg PO DAILY RF: 0 oxycodone 15 mg tablet 15 mg PO Q4H PRN (Reason: Pain) RF: 0 methenamine hippurate 1 gram tablet 1 g PO BID RF: 0 citalopram 20 mg Tablet 20 mg PO DAILY RF: 0 ascorbic acid (vitamin C) [Vitamin C] 500 mg Tablet 500 mg PO BID RF: 0 pantoprazole 40 mg tablet,delayed release (DR/EC) 40 mg PO DAILY RF: 0 gabapentin 300 mg capsule 300 mg PO TID RF: 0 aspirin 81 mg Tablet,Chewable 81 mg PO DAILY RF: 0 Daliresp 500 mcg tablet 500 mcg PO DAILY RF: 0 prochlorperazine maleate 10 mg tablet 10 mg PO PRN RF: 0 Singulair 10 mg Tablet 10 mg PO DAILY RF: 0 Levaquin 750 mg tablet 750 mg PO DAILY RF: 0 dutasteride 0.5 mg capsule 0.5 mg PO DAILY RF: 0 metformin 500 mg tablet 500 mg PO DAILY RF: 0 albuterol sulfate 2.5 mg /3 mL (0.083 %) solution for nebulization 2.5 mg inhalation QID PRN (Reason: Shortness Of Breath) RF: 0 lorazepam 1 mg Tablet See Rx Instructions .ROUTE .COMPLEX RF: 0 Ventolin HFA 90 mcg/actuation HFA aerosol inhaler 1 inh INHALATION QID PRN (Reason: shortness of breath or wheezing) RF: 0 Discharge Orders: Discharge Order (Routine); Ordered 10/28/19 Ordered By: Kelsy Dias Referrals: Luis A Flower MD [Hospitalist] - 10/29/19 Luis A Owens DO [Primary Care Provider] - Patient Instructions: Nausea and Vomiting - Oncology, Acute Nausea and Vomiting (ED) Activity Restrictions/Additional Instructions: Return for any new or worsening symptoms. Drink plenty of fluids to keep well-hydrated. Follow-up with Dr. Flower tomorrow. 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
[2019-10-28 16:28] VITALS: O2SAT 95
[2019-10-28 17:00] VITALS: BP 118/75; PULSE 72; RESP 17; O2SAT 93
[2019-10-28 17:02] LABS: Add Urine Microscopic? YES; Bilirubin Urine 1+ (NEGATIVE); Blood Urine Trace (Negative); Glucose Urine UA Norm (Normal); Ketones Urine 2+ (Negative); Leukocyte Esterase Urine Negative (Negative); Nitrate Urine Negative (Negative); Protein Urine Neg (Negative); Specific Gravity, Urine 1.025 (1.005-1.030); Urine Appearance Clear (CLEAR); Urine Color Yellow (Yellow); Urobilinogen Urine 1 mg/dL (Negative); pH Urine 5 (5-7)
[2019-10-28 17:03] LABS: Bacteria Urine 3+; Mucus Urine 3+; Squamous Epithelial Cell Urine 0-4 (0-5)
[2019-10-28 17:04] LABS: Calcium Oxalate Crystals Urine 15-25 /hpf
[2019-10-28 17:05] LABS: Add Urine Culture? Yes
[2019-10-28] MEDS: iohexol 300 mg/mL 100 mL Btl IV (17:16)
[2019-10-28] MEDS: sodium chloride 0.9% 1,000 ML 999 ML IV (17:28)
[2019-10-28] MEDS: cefTRIAXone 1,000 MG in sodium chloride 0.9% (plus) 50 ML 100 MG IV (17:41)
[2019-10-28] MEDS: metoclopramide 5 mg/mL SDV 2 mL 10 MG IVP (18:26)
[2019-10-28 18:56] VITALS: BP 101/78; PULSE 84; RESP 14; O2SAT 95
== END 2019-10-28 18:58 | disposition home or self-care (01) ==
PROVIDERS: Nurse Practitioner Family; Emergency Provider Family Medicine; PCP Internal Medicine
DX: R11.2 Nausea with vomiting, unspecified (principal); Z79.84 Long term (current) use of oral hypoglycemic drugs; Z79.82 Long term (current) use of aspirin; I48.91 Unspecified atrial fibrillation; J44.9 Chronic obstructive pulmonary disease, unspecified; I25.10 Atherosclerotic heart disease of native coronary artery without angina pectoris; E11.9 Type 2 diabetes mellitus without complications; Z85.51 Personal history of malignant neoplasm of bladder; I25.2 Old myocardial infarction; E78.5 Hyperlipidemia, unspecified; I10 Essential (primary) hypertension; F17.290 Nicotine dependence, other tobacco product, uncomplicated
CPT/HCPCS: 12345; 36415; 74177; 80053; 81001; 83605; 83690; 85025; 87040; 87086; 96365; 96375; 99283; A9270; J0696; J2765; J7030; Q9967

== ENCOUNTER 2019-10-29 08:29 | Outpatient (CLI) | payer MEDICARE, SELFPAY ==
--- NOTE | 2019-11-01 11:51 | ONC FU_ITS ---
Dr. Flower Patient Follow-Up Note Patient: Reshma Perry < Unit #: [id number]: 1950 Dicatated By: Luis A Flower M.D.Date of Visit:Oct 29, 2019 Onc Med Follow-up/Prog Note Chief Complaint: Lung cancer. 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 By clinical evaluation his disease was stage IIIB (T2b, N3, M0), but with subsequent progression to stage IVB (M1c). On 08/31/2018 he had presented to the emergency room with pain in the left side of the chest and heartburn. His evaluation included CT pulmonary angiogram. That study showed no pulmonary emboli, but there was evidence of a spiculated mass in the posterior right lower lobe measuring 5.8 x 5.7 x 4.5 cm. There was possible invasion into the intercostal muscles. Also noted was mediastinal and hilar lymphadenopathy, including a confluent cluster of subcarinal lymph nodes measuring 4.3 x 2.9 cm as well as bilateral paratracheal and hilar lymphadenopathy. Also noted was a 1.4 spiculated nodule at the right lung apex, consistent with early neoplasm versus scar. Transbronchial biopsy of the right lower lobe on 09/17/2018 showed non-small cell carcinoma consistent with adenosquamous carcinoma. The tumor cells were TTF-1 positive. Staging PET/CT on 09/25/2018 showed FDG avid right lower lobe mass with extensive metastatic involvement in the mediastinum but no evidence for distant metastases. His medical illnesses include hypertension, hyperlipidemia, coronary artery disease, and COPD. He has had previous myocardial infarction and coronary angioplasty/stent placement. He has a history of superficial bladder cancer, for which he is now on yearly surveillance cystoscopy, and he also has a history of urethral stricture. He has smoked for more than 50 years, previously up to 3 packs of cigarettes daily, though he had subsequently cut down. INTERIM HISTORY: He began radiation concurrently with weekly carboplatin/Taxol chemotherapy on 11/03/2018. As of 12/09/2018 he had completed 6 weekly chemotherapy infusions. At week 4 his treatment was changed to carboplatin/Abraxane due to steroid related hyperglycemia. He completed radiation on 12/22/2018 to a total dose of [address] on 12/23/2018 showed a slight decrease in the size of the superior segment right lower lobe neoplasm compared to the August 2018 study. Cystic and/or necrotic mediastinal and hilar lymph nodes had slightly decreased in size and number. There was no evidence of disease progression. With those findings she was given the option to begin maintenance immunotherapy with durvalumab. He began cycle 1 on 01/20/2019. Within 2 days he had developed severe weakness and fever. On evaluation in the emergency room, he had evidence of urinary tract infection, which ultimately proved to be due to Enterobacter cloacae. He was ill enough to require hospitalization. He was discharged home 2 days later on antibiotic coverage with Levaquin. His laboratory studies did show a significant decline in his hemoglobin, to 8.3 g. During subsequent follow-up, he remained very weak, and he continued to require frequent IV hydration. His hemoglobin, though, returned to baseline at 11 g. He was seen for a follow-up visit on 02/03/2019. At that point he appeared to be showing some recovery, and I opted to just have him continue with observation/symptomatic management. At his follow-up visit on 02/22/2019 he complained of severe pain in the right shoulder. X-ray was unrevealing. His pain continued to worsen and also involved his neck. A repeat chest CT on 03/09/2019 showed interval decrease in the right lower lobe pleural-based neoplasm, at that point measuring 2.1 x 4.6 x 3.5 cm. A nodular opacity at the right lung base measuring 1.6 x 1.2 cm appeared stable. There was unchanged necrotic anterior mediastinal, AP window, and subcarinal lymphadenopathy. MRI of the cervical spine showed abnormal bone marrow signal involving the C6 vertebral body extending into the posterior elements with erosion of the spinous process and posterior elements. There was extensive posterior element and perispinal soft tissue edema. The reported differential included metastatic disease versus infection. A nuclear medicine WBC scan on 03/30/2019 showed evidence of a lytic bony destructive process throughout the C6 spinal level including pathologic compression of the C6 vertebral body, consistent with metastatic disease. He was then referred to Dr. Martinez for palliative radiation to the cervical spine. He completed treatment on 04/22/2019 to a total dose of 3000 cGy. He was seen here for a follow-up visit on 05/07/2019. He had reported improvement in his neck pain. At that point I had planned to restage with PET/CT, but that became problematic, in part due to his diabetes. On 06/29/2019 he was admitted to the hospital after becoming unresponsive at home and being transported to the emergency room by ambulance. He had evidence of non-ST elevation myocardial infarction. He was treated medically. During that time he also required treatment for atrial fibrillation. It was managed with amiodarone. He was discharged home on 200 mg of amiodarone daily. His Levemir was discontinued, apparently because of some low blood sugars. It was opted to limit his anticoagulation to aspirin. His echocardiogram showed normal left ventricular ejection fraction at 60%. Given the limited treatment options available, he continued observation/symptomatic management for the lung cancer pending outcome of a next generation sequencing study. On 10/28/2019 was seen in the emergency room with nausea/vomiting and progressive weakness. His laboratory studies were unrevealing, but his CT abdomen/pelvis showed findings suspicious for diffuse hepatic metastatic disease. His recent brain MRI, from 10/21/2019, showed a tiny right cerebellopontine angle lesion just above the IHC measuring 5 x 3 mm, thought to be most likely a small meningioma or schwannoma versus small vascular malformation. Metastasis was felt to be unlikely, and there was otherwise no evidence for metastatic disease. He is seen for a follow-up visit. He is very weak down he has very limited activity. ECOG score is 3. He has been having nausea/vomiting and he has been unable to keep much of his oral intake down. His weight is down 11 pounds. He had some fever a week and a half ago in association with respiratory symptoms, and those did improve with antibiotic. He says his breathing now is not too bad, though he has good days and bad days. He is on continuous oxygen. He has some cough, but he is bringing up white sputum with it. He does not complain of chest pain. Bowel function is not real good, but that he attributes to poor intake. His urination is real slow, and he thinks his bladder is not emptying completely. He is having some back pain. He does not complain of headache. He has numbness in his right thumb. He has no other focal neurologic symptoms. Medications: Amiodarone HCl 1 (200 mg) Tablet Oral daily, Aspirin 1 Tablet (of 81 mg) Oral daily, Atorvastatin Calcium 1 Tablet (of 80 mg) Oral daily, Citalopram Hydrobromide 1 Tablet (of 20 mg) Oral daily, Daliresp 1 Tablet (of 500 mcg) Oral daily PRN, Dexamethasone (4 mg) Tablet Oral Take as Directed, Docusate Sodium 1 Capsule (of 100 mg) Oral daily, Dutasteride 1 Capsule (of 0.5 mg) Oral daily, Levemir Flexpen 10 Units (of 100 Units/mL) Subcutaneous at bedtime, Methenamine Hippurate 1 Tablet (of 1 G) Oral b.i.d., Montelukast Sodium 1 Tablet (of 10 mg) Oral daily PRN, Mouthwash Compounding Base 1 tsp Liquid Oral four times a day PRN, oxyCODONE-Acetaminophen 1 Tablet (of 5-325 mg) Oral q 6 hours PRN, Pantoprazole Sodium 1 Tablet (of 40 mg) Tablet, enteric coated Oral daily, predniSONE 1 Tablet (of 20 mg) Oral daily, Prochlorperazine Maleate 1 Tablet (of 10 mg) Oral b.i.d. PRN, Tamsulosin HCl 1 Capsule (of 0.4 mg) Oral b.i.d., Vitamin C 1 Tablet (of 1000 mg) Oral b.i.d. Allergies: Sulfa Antibiotics Review of Systems: Constitutional - He is very weak and he does not have much activity. Appetite is not good. His weight is down 11 pounds. He had fever a week and a half ago, but now resolved. He was having night sweating, that also is better. ECOG score is 3, ENMT - He has sinus congestion/drainage. No mouth sores. No sore throat or difficulty swallowing, Hematologic/Lymphatic - He has some bruising, Respiratory - His breathing is not too bad. He does have good days and bad days. He is on oxygen. He has some cough. It is productive of white sputum. No pleuritic pain or hemoptysis, Cardiovascular - No angina pain. No palpitations, Gastrointestinal - He has been having nausea and vomiting, is not keeping much food down. No heartburn or acid reflux. Bowel function is not too good, but he attributes that to poor intake. No blood in the stool or black stools, Genitourinary (M) - His urination is real slow and he is not emptying his bladder completely. No dysuria or hematuria, Musculoskeletal - He has back pain, Neurologic - No headache. He sometimes has dizziness. He has numbness in his right thumb. No other focal neurologic symptoms, Psychiatric - No anxiety or depression. He has having difficulty sleeping. Vital Signs: Performed on Oct 29, 2019 09:31 Height - 66.00 in Weight - 88.0 lbs (LOW) BSA - 1.41 sq.m BMI - 14.20 (LOW) Temperature - 99.3 F (HIGH) Pulse - 94 /min Respiration - 20 /min BP - 98/68 mm(hg) O2 Sat - 92 % (LOW) Pain - 7 Physical Examination: Constitutional - He appears generally weak and frail, Eyes - Sclerae nonicteric. Conjunctivae clear, ENMT - No lesions noted in the oral cavity, Hematologic/Lymphatic - No cervical, clavicular, or axillary adenopathy, Respiratory - Lungs sound clear with diminished air movement bilaterally, Cardiovascular - Heart rhythm is regular. There is no murmur, gallop, or rub noted, Abdomen - Thin and firm. Liver is not overtly enlarged or tender. Spleen is not palpable. There is no abdominal mass or ascites noted and there is no inguinal adenopathy, Extremities - No edema. There is chronic purpura on both arms, Neurologic - No focal neurologic deficits noted. Impression: 1. 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 By clinical evaluation his disease was stage IIIB (T2b, N3, M0) at initial diagnosis in August 2018, but with subsequent progression to stage IVB (M1c). 2. He had poor performance status, ECOG 2, and he had significant weight loss at initial diagnosis. His other medical illnesses include: 3. COPD. 4. Hypertension. 5. Hyperlipidemia. 6. Coronary artery disease. 7. History of superficial bladder cancer. 8. He has a history of urethral stricture. 9. Anxiety/depression. He began radiation concurrently with weekly carboplatin/Taxol chemotherapy on 11/03/2017. As of 12/09/2018 he had completed 6 weekly chemotherapy infusions. Beginning with week 4 his treatment was changed to carboplatin/Abraxane due to steroid related hyperglycemia. He completed radiation on 12/22/2018 to a total dose of 6600 cGy. His restaging chest CT on 12/23/2018 showed slight decrease in the right lower lobe pulmonary neoplasm and in the mediastinal and hilar lymph nodes. There was no evidence of disease progression. Given those findings, he was given the option to begin maintenance immunotherapy with durvalumab. He began cycle 1 on 01/20/2019. Within 2 days had developed acute illness with severe weakness and fever. This was thought to be due to urinary tract infection, and his urine culture ultimately did grow Enterobacter cloacae. He was given antibiotic therapy with Levaquin. During that time, he also had become significantly anemic. During subsequent follow-up he remained weak, and he continued to require frequent IV hydration. His hemoglobin, though, returned to baseline at 11 g. During subsequent followup he appeared to be showing gradual recovery. However, at his follow-up visit on 02/22/2019 he had developed new pain in the right shoulder and arm and subsequently in his neck. Repeat chest CT showed residual pleural-based right lower lobe mass measuring 2.1 x 4.6 x 3.5 cm, but it had decreased from the prior study. His subsequent MRI and nuclear medicine WBC scan showed evidence of metastatic involvement of the C6 vertebral body with associated pathologic compression fracture. He was referred to Dr. Martinez for palliative radiation to the cervical spine. He completed treatment on 04/22/2019 to a total dose of 3000 cGy. He had a very good clinical response. On 06/29/2019 he was admitted to the hospital after he became unresponsive at home. He was found to have acute non-ST elevation myocardial infarction. He was managed medically. His clinical course was complicated by atrial fibrillation, which was managed adequately with amiodarone. Following discharge from the hospital he continued to have poor performance status, but he appeared stable from a cardiac standpoint. Given the limited treatment options available, he initially discontinued on observation/symptomatic management for the lung cancer pending outcome of a next generation sequencing study. Thus far the completed study has not been reported. In the meantime, he has developed recurrent nausea/vomiting and he has been getting progressively weaker. His CT abdomen/pelvis yesterday showed findings consistent with diffuse hepatic metastatic disease. Plan: As he has failed his first-line chemotherapy and he had very poor tolerance with his initial trial of immunotherapy, it is very unlikely I will have an effective treatment option to offer him. We will wait for the results of the next generation sequencing study, but unless there is a targetable mutation identified, he will be recommended to just continue with symptomatic/supportive care, preferably with hospice. At least for now I will have him start Reglan 5 mg 4 times daily for the nausea along with prednisone 10 mg twice daily. He can continue the ondansetron as needed and he also has lorazepam available to use as needed. He is advised not to take Compazine along with the Reglan. Signed By: Luis A Flower M.D. <<Signature on File>>
== END 2019-10-29 08:30 | disposition home or self-care (01) ==
LOC: ONCMED 11-01 08:30
PROVIDERS: PCP Internal Medicine; Visit Provider Internal Medicine Medical Oncology
DX: C34.31 Malignant neoplasm of lower lobe, right bronchus or lung (principal); R93.5 Abnormal findings on diagnostic imaging of other abdominal regions, including retroperitoneum; R11.2 Nausea with vomiting, unspecified; J44.9 Chronic obstructive pulmonary disease, unspecified; I10 Essential (primary) hypertension; I25.2 Old myocardial infarction; E78.5 Hyperlipidemia, unspecified; I25.10 Atherosclerotic heart disease of native coronary artery without angina pectoris; F41.8 Other specified anxiety disorders; Z85.51 Personal history of malignant neoplasm of bladder; Z92.3 Personal history of irradiation; Z79.899 Other long term (current) drug therapy
CPT/HCPCS: 99214